=== PATIENT | male | born 1945 | race Caucasian/White ===

== ENCOUNTER → 2018-01-28 08:56 | Outpatient (REF) | payer SELFPAY ==
[2018-01-28 16:57] LABS: Amphetamine/Metha Screen,Urine Negative ng/mL (<1000); Barbiturates Screen,Urine Negative ng/mL (<200); Benzodiazepines Screen,Urine Negative ng/mL (200); Cannabinoid Screen,Urine Negative ng/mL (<50); Cocaine Screen,Urine Negative ng/g (<300); Methadone Screen,Urine Negative ng/mL (<300); Opiate Screen,Urine Positive ng/mL (<300); Phencyclidine Screen,Urine Negative ng/mL (<25)
== END ==
LOC: LAB 08:56
PROVIDERS: Visit Provider Emergency Medicine
DX: M54.30 Sciatica, unspecified side (principal)
CPT/HCPCS: 80305

== ENCOUNTER → 2022-12-04 10:40 | Outpatient (CLI) | payer MEDICARE, SELFPAY | PROVIDERS: PCP Family Medicine; Visit Provider Family Medicine | DX: I16.0 Hypertensive urgency (principal) ==

== ENCOUNTER → 2022-12-04 13:51 | Outpatient (CLI) | payer SELFPAY ==
[2022-12-04 16:02] LABS: Chol/HDL Ratio 4.3 (1-3.5); Cholesterol 213 mg/dl (140-200); HDL Cholesterol 50 mg/dl (40-60); Triglycerides 114 mg/dl (30-150); VLDL Cholesterol 23 mg/dL (0-40)
[2022-12-04 16:13] LABS: Direct LDL Cholesterol 131.94 mg/dL (100-129)
[2022-12-04 16:35] LABS: Prostate Specific Ag Screen 1.3 ng/ml (0.0-4.0)
== END ==
PROVIDERS: PCP Family Medicine; Visit Provider Family Medicine
DX: I16.0 Hypertensive urgency (principal); Z76.89 Persons encountering health services in other specified circumstances; Z12.5 Encounter for screening for malignant neoplasm of prostate
CPT/HCPCS: 80061; G0103

== ENCOUNTER 2023-09-10 17:56 | Emergency (ER) | payer SELFPAY ==
[2023-09-10] VITALS (8 sets, daily range): BP systolic 119–165; BP diastolic 61–88; PULSE 93–114; RESP 18–20; TEMP 36.8–36.9; O2SAT 92–97; BMI 25.8
--- NOTE | 2023-09-10 18:39 | CT_ITS ---
PROCEDURE INFORMATION: Exam: CT Lumbar Spine Without Contrast Exam date and time: 09/10/2023 6:44 PM Age: 78 years old Clinical indication: Low back pain; Additional info: History of lumbar spinal cancer, new sciaticsa TECHNIQUE: Imaging protocol: Computed tomography of the lumbar spine without contrast. Radiation optimization: All CT scans at this facility use at least one of these dose optimization techniques: automated exposure control; mA and/or kV adjustment per patient size (includes targeted exams where dose is matched to clinical indication); or iterative reconstruction. COMPARISON: SPLUMBWO CT lumbar spine wo con 01/12/2018 12:37 PM FINDINGS: Bones/joints: Diffuse osteopenia noted. There are bilateral acute nondisplaced fractures of the sacral ala bilaterally. There is preservation of vertebral alignment. There is preservation of vertebral body heights. The sacrum demonstrates diffuse sclerotic appearance. Kidneys and ureters: Punctate nonobstructive left nephrolithiasis Vasculature: The aorta demonstrates mild atherosclerotic calcification. Lymph nodes: Multi station retroperitoneal lymphadenopathy noted. A footwear sales representative node measures 1.8 cm in the left periaortic station. Soft tissues: Moderate presacral hematoma/soft tissue density. IMPRESSION: 1. There are bilateral acute nondisplaced fractures of the sacral ala bilaterally. Background of diffuse sacral sclerosis suspicious for underlying osseous lesion. Radiographic evaluation of the pelvis is recommended to assess for pubic rami fractures. 2. Moderate presacral hematoma/soft tissue density. 3. Multi station retroperitoneal lymphadenopathy
--- NOTE | 2023-09-10 18:43 | [facility].EDGENADL ---
Discharge Plan Disposition Patient Disposition: Home, Self-Care Prescriptions Prescriptions: No Action lisinopril 20 mg tablet 20 mg PO DAILY Referrals Follow up/Referrals: Prateek Best DO [Primary Care Provider] - See instructions Yong Lyons DO [Staff Physician] - See instructions Activity Restrictions/Add. Instructions Additional Instructions/Restrictions: Follow-up with your primary state game warden oncologist regarding this visit to the emergency department. Bring the disc with images with you. Images have also been electronically shared to [facility], but bring the disc just in case. Today, imaging found pathologic (associated with malignancy) sacral fractures with associated pelvic lymphadenopathy (swollen lymph nodes). Rectosigmoid (colon) thickening concerning for malignant involvement, 15 mm left lower lobe lung nodule with associated pleural effusion and axillary lymphadenopathy. All discussed findings of low white blood cell count (2.9 with low lymphocytes at 0.5). Call your family doctor to establish care for this visit to the emergency department and schedule follow-up within 48 hours to ensure improvement. If you have any worsening of your condition or any other concerning signs or symptoms, return to the emergency department or your primary care doctor for further evaluation. Clinical Impressions Clinical Impression: Lung nodule, Pathological fracture of sacral vertebra, Pleural effusion Discharge ED Provider: Saleem Lozano General Adult HPI General Chief complaint: PAIN Stated complaint: RT leg pain Time Seen by Provider: 09/10/23 17:59 Mode of Arrival: Wheelchair Limitations: No Limitations Description of Symptoms (Recalled from ER Triage Doc. by RN): PT REPORTS BACK PAIN THAT RADIATES DOWN RIGHT LEG X 1 MONTH. 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 Patient states has been going on for months. Has not seen his family doctor. Do a history of previous radiation and cancer in his lumbar spine, intermittently loses continence of bowel and bladder, but has had new symptoms. Feels as if the last time he had cancer in his spine and wants to make sure he is not missing anything. Denies new bowel or bladder incontinence. No weakness. Related Data Home Medications Medication Instructions Recorded Confirmed lisinopril 20 mg tablet 20 mg PO DAILY htn 01/12/23 09/10/23 Allergies Allergy/AdvReac Type Severity Reaction Status Date / Time No Known Allergies Allergy Verified 09/10/23 19:35 [facility] Disclaimer: The information contained in this section may have been updated after the patient was seen, as this information can be updated by other users. Medical History (Updated 09/10/23 @ 21:28 by Saleem Lozano MD) Cancer Change in bowel habit Dental caries History of esophageal stricture History of tuberculosis Surgical History History of bone marrow biopsy History of radical neck dissection Family History (Updated 01/12/23 @ 11:31 by Domonique Gonzalez RN) Other Family history of diabetes mellitus type II Family history of tuberculosis Social History (Updated 01/12/23 @ 11:33 by Domonique Gonzalez RN) Smoking Status: Former smoker alcohol intake: former substance use type: denies use current occupational status: retired Travel in the last 8 weeks: None household members: none housing: apartment lives independently: Yes marital status: single education level: high school caffeine: Yes special albert needs: No do you feel safe at home: Yes victim of physical abuse: No victim of emotional abuse: No victim of sexual abuse: No would you like helpful sources: No ROS Obtained: Yes All systems reviewed & no additional complaints except as documented Physical Exam General General appearance: alert and in no apparent distress Head Head exam: atraumatic and normocephalic Eye Eye exam: Present normal appearance, PERRL and EOMI ENT ENT exam: Present mucous membranes moist Neck Neck exam: Present normal inspection, full ROM and trachea midline Respiratory Respiratory exam: Absent respiratory distress, wheezes, stridor, accessory muscle use or prolonged expiratory phase Cardiovascular Cardiovascular exam: Present normal rhythm Abdominal Exam Abdominal exam: Present soft; Absent distention, tenderness, guarding, rebound or rigidity Extremities Exam Extremities exam: Absent edema Neurological Exam Neurological exam: Present alert, oriented X3, CN II-XII intact and normal gait; Absent motor sensory deficit Skin Skin exam: Present warm and dry; Absent diaphoresis or erythema Medical Decision Making Medical Records Medical records reviewed: Yes I reviewed the patient's medical records. Beka Inquiry Pt receiving controlled substance: No Beka was queried for this patient: No Vital Signs: 09/10/23 17:58 09/10/23 19:20 09/10/23 19:40 Temperature 98.2 F Temperature Source Oral Pulse Rate 109 H 107 H Pulse Rate [Radial] 114 H Respiratory Rate 18 Blood Pressure 165/88 H 139/78 Blood Pressure [Right Arm] 151/88 H Blood Pressure Mean Blood Pressure Mean [Right Arm] 109 Blood Pressure Source [Right Arm] Automatic Cuff Blood Pressure Position [Right Arm] Sitting 02 Sat by Pulse Oximetry 97 96 96 Oxygen Delivery Method Room Air 09/10/23 20:00 09/10/23 20:40 09/10/23 21:00 Temperature Temperature Source Pulse Rate 97 H 99 H 96 H Pulse Rate [Radial] Respiratory Rate 18 Blood Pressure 122/62 141/77 H 119/61 Blood Pressure [Right Arm] Blood Pressure Mean 90 Blood Pressure Mean [Right Arm] Blood Pressure Source [Right Arm] Blood Pressure Position [Right Arm] 02 Sat by Pulse Oximetry 92 L 92 L 93 L Oxygen Delivery Method 09/10/23 21:20 09/10/23 21:35 Temperature 98.4 F Temperature Source Oral Pulse Rate 93 H 99 H Pulse Rate [Radial] Respiratory Rate 20 18 Blood Pressure 126/65 126/65 Blood Pressure [Right Arm] Blood Pressure Mean 94 Blood Pressure Mean [Right Arm] Blood Pressure Source [Right Arm] Blood Pressure Position [Right Arm] 02 Sat by Pulse Oximetry 93 L Oxygen Delivery Method Room Air Lab Data Lab Results 09/10/23 19:19: WBC 2.9 L, RBC 3.19 L, Hgb 10.1 L, Hct 29.6 L, MCV 92.8, MCH 31.6 H, MCHC 34.0, RDW 16.9, Plt Count 221, MPV 8.6, Neut % (Auto) 73.2, Lymph % (Auto) 18.1, [place] % (Auto) 7.7, Eos % (Auto) 0.6, Baso % (Auto) 0.4, Neut # (Auto) 2.1, Lymph # (Auto) 0.5 L, [place] # (Auto) 0.2, Eos # (Auto) 0.0, Baso # (Auto) 0.0, Sodium 140, Potassium 4.1, Chloride 102, Carbon Dioxide 27, Anion Gap 15.1 H, BUN 23 H, Creatinine 0.90, Estimated Creat Clear 60, Estimated GFR 81, Est GFR ( Amer) 98, Glucose 96, Calcium 9.1, Total Bilirubin 0.6, AST 57, ALT 51, Alkaline Phosphatase 258 H, Lactate Dehydrogenase 581, Total Protein 7.2, Albumin 4.2, Globulin 3.0, Albumin/Globulin Ratio 1.4 09/10/23 19:19 09/10/23 19:19 Orders (Tests/Meds): ED MEDICATIONS Generic Name Dose Route Start Last Admin Trade Name Freq PRN Reason Stop Dose Admin Sodium Chloride 10 ml 09/10/23 20:26 09/10/23 20:27 Sodium Chloride 0.9% 10ml Syr (Rad Only) IV 10/10/23 20:25 10 ml NEEDED PRN Administration Maintain IV Site Discontinued Medications Generic Name Dose Route Start Last Admin Trade Name Freq PRN Reason Stop Dose Admin Dexamethasone 10 mg 09/10/23 18:39 09/10/23 19:41 Dexamethasone 4mg Tablet PO 09/10/23 18:40 10 mg ONCE ONE Administration Iopamidol 75 ml 09/10/23 20:26 09/10/23 20:27 Iopamidol-370 (76%);100ml Bottle IV 09/10/23 20:27 75 ml ONCE ONE Administration Ketorolac Tromethamine 15 mg 09/10/23 18:39 09/10/23 19:40 Ketorolac 30mg/Ml Vial IM 09/10/23 18:40 15 mg ONCE ONE Administration Lidocaine 1 each 09/10/23 18:39 09/10/23 19:41 Lidocaine 5% Transdermal Patch TP 09/10/23 18:40 1 each ONCE ONE Administration Morphine Sulfate 4 mg 09/10/23 19:24 09/10/23 19:41 Morphine 4mg/Ml Syringe IV 09/10/23 19:25 4 mg ONCE ONE Administration Ondansetron HCl 4 mg 09/10/23 19:24 09/10/23 19:40 Ondansetron 4mg/2ml Vial IV 09/10/23 19:25 4 mg ONCE ONE Administration ORDERS Category Date Time Status CT abdomen pelvis w con Stat Cat Scan 09/10/23 19:[address] bony pelvis Stat Cat Scan 09/10/23 19:[address] chest w con Stat Cat Scan 09/10/23 19:[address] lumbar spine wo con Stat Cat Scan 09/10/23 18:[address] thoracic spine wo con Stat Cat Scan 09/10/23 19:12 Completed CBC w/Auto Diff [Complete Blood Count Auto Diff] Stat Lab 09/10/23 19:19 Completed CMP [Comprehensive Metabolic Panel] Stat Lab 09/10/23 19:19 Completed LDH [Lactate Dehydrogenase] Stat Lab 09/10/23 19:19 Completed Medical Decision Narrative: 78-year-old male 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 Patient states has been going on for months. Has not seen his family doctor. Do a history of previous radiation and cancer in his lumbar spine, intermittently loses continence of bowel and bladder, but has had new symptoms. Feels as if the last time he had cancer in his spine and wants to make sure he is not missing anything. Denies new bowel or bladder incontinence. No weakness. History was obtained via conversation with patient. On arrival, patient hemodynamically stable, alert, oriented x4, appropriate, GCS 15, moving all extremities spontaneously, pupils equal and reactive to light. Full physical exam performed and significant for well-appearing male no acute distress. No spinal tenderness. Neurovascularly intact. Differential includes spinal, fracture, radiculopathy, neuropathy, cord compression, among others. Patient was given lidocaine patch, Toradol IM, Decadron p.o. for symptomatic management and correction of underlying abnormalities. Workup independently interpreted and significant for leukopenia with relative lymphopenia. LDH negative. Electrolytes within normal limits. CT of the lumbar spine was concerning for osteolytic mass, so further CTs for malignancy workup ordered including CT with contrast of the chest, abdomen, pelvis as well as dedicated CT bony pelvis. These are concerning for left-sided lung nodule with associated pleural effusion and left-sided axillary lymphadenopathy, as well as sacral fractures bilaterally with associated pelvic lymphadenopathy. See radiology read for full review of final results. On reevaluation, patient upset by news, but agreeable for home-going and outpatient management. Patient states that he needs to change primary care providers, so was referred to Dr. Lyons's office. He also has close follow-up with his hematology/oncology team over at [facility], so there is recommended he follow-up with them, he voiced his understanding. Images were shared with [place] and patient was given a disc/discharge packet. 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 Because patient at baseline without signs or symptoms of clinical decompensation, deemed appropriate for discharge. Results were relayed to patient who voiced understanding and were agreeable to outpatient management and follow up. At the time of discharge the patient was hemodynamically stable, tolerating PO, and mobilizing appropriately. Critical Care Critical Care Time Critical Care Time: No
--- NOTE | 2023-09-10 18:47 | PC.NURSE ---
Pt gone to CT
--- NOTE | 2023-09-10 19:12 | CT_ITS ---
PROCEDURE INFORMATION: Exam: CT Pelvis Without Contrast; Skeletal Exam date and time: 09/10/2023 8:13 PM Age: 78 years old Clinical indication: Pelvic pain; Additional info: Eval for malignancy vs other fractures TECHNIQUE: Imaging protocol: Computed tomography of the pelvis without contrast. Exam focused on the skeleton. Total images: 780 Radiation optimization: All CT scans at this facility use at least one of these dose optimization techniques: automated exposure control; mA and/or kV adjustment per patient size (includes targeted exams where dose is matched to clinical indication); or iterative reconstruction. COMPARISON: [facility] CT abdomen pelvis wo con 02/04/2018 1:53 AM FINDINGS: Stomach and bowel: Large rectal stool burden. Rectal wall thickening with perirectal edema. Urinary bladder: Bladder wall thickening. Lymph nodes: Diffuse soft tissue mass density infiltrating the presacral space extending along the left greater than right iliac chains. Left greater than right iliac lymphadenopathy. Additional left external iliac, inguinal, and femoral lymphadenopathy which would be amenable to percutaneous biopsy. Bones/joints: Acute bilateral sacral ala fractures. Diffuse abnormal osseous mineralization the sacrum including sclerosis of vertebral body segments and lucency of the sacral ala. No additional pelvic fracture. No hip fracture. Benign-appearing bone lesion with thin sclerotic wall in the right femoral neck. Diffuse soft tissue masslike density infiltrating the entire sacral spinal canal and extending along the bilateral sacral foramen to the bilateral SI joints. Soft tissues: Unremarkable. IMPRESSION: 1. Acute bilateral sacral ala fractures are most likely pathologic and secondary to diffuse infiltrating neoplasm. 2. Large conglomerate soft tissue density mass in the presacral space extending along the left greater than right iliac chains. 3. Diffuse soft tissue masslike infiltration of the sacral spinal canal and bilateral sacral foramina. 4. Pelvic lymphadenopathy. 5. Fecal impaction within the rectum versus stercoral colitis. 6. Moderate bladder wall thickening.
--- NOTE | 2023-09-10 19:12 | CT_ITS ---
PROCEDURE INFORMATION: Exam: CT Abdomen And Pelvis With Contrast Exam date and time: 09/10/2023 8:16 PM Age: 78 years old Clinical indication: Abdominal pain; Generalized; Additional info: Multiple spinal FX, eval for malignancy TECHNIQUE: Imaging protocol: Computed tomography of the abdomen and pelvis with contrast. Total images: 827 Radiation optimization: All CT scans at this facility use at least one of these dose optimization techniques: automated exposure control; mA and/or kV adjustment per patient size (includes targeted exams where dose is matched to clinical indication); or iterative reconstruction. Contrast material: ISOVUE; Contrast volume: 75 ml; Contrast route: IV; COMPARISON: CT BONY PELVIS 09/10/2023 8:13 PM FINDINGS: Lungs: Calcified bibasilar granuloma. Concerning 15 mm medial left lower lobe lung nodule/mass, axial image 12 series 4. Pleural spaces: Trace left pleural effusion. Heart: Normal heart size. Coronary arteries: Coronary artery calcifications. Diaphragm: Tiny hiatal hernia. Liver: Slight decreased liver attenuation from phase of contrast versus steatosis. Calcified liver granuloma. No mass. Normal size and contour. Gallbladder and bile ducts: Cholelithiasis filling the gallbladder lumen. No secondary signs of acute cholecystitis. No bile duct dilatation. Pancreas: Mild pancreatic atrophy. No mass or acute pancreatitis. Spleen: Scattered calcified splenic granuloma. No splenomegaly. Adrenal glands: Normal. No mass. Kidneys and ureters: 3 mm lower pole left renal calculus. No hydronephrosis, renal mass, or perinephric fluid. Stomach and bowel: Collapsed stomach. Unremarkable duodenum. No ileus or bowel obstruction. Small bowel appears within normal limits. Moderate to large colonic stool burden. Large rectal stool burden including rectal wall thickening and perirectal edema. Focal irregular wall thickening at the rectosigmoid junction. Appendix: Normal appendix. Intraperitoneal space: Unremarkable. No free air. No significant fluid collection. Vasculature: Atherosclerotic abdominal aorta without aneurysm. Lymph nodes: Left periaortic lymphadenopathy near the renal sinus, measuring 17 x 18 mm. Additional scattered prominent but not pathologically enlarged periaortic and aortocaval lymph nodes. Significant confluent masslike soft tissue density infiltrating the presacral space and left greater than right iliac chains. Left inguinal lymphadenopathy. Left external iliac and femoral lymphadenopathy. Left greater than right iliac adenopathy. Urinary bladder: Circumferential bladder wall thickening. No bladder stones. Trabeculated bladder wall with tiny diverticulum. Reproductive: Nonenlarged prostate with dystrophic calcifications. Bones/joints: Diffuse osseous demineralization. Mild degenerative changes lumbar spine. Abnormal bone mineralization the sacrum with bilateral sacral ala fractures may reflect sacral insufficiency fracture however must consider pathologic fracture given the significant abnormal soft tissue opacity encompassing the sacrum. Benign-appearing thin walled sclerotic bone lesion right femoral neck. No acute fracture of the pelvic ring. The sacral spinal canal appears diffusely infiltrated by soft tissue density with extension along the bilateral sacral foramen, and extension to the bilateral SI joints. Soft tissues: Fat containing bilateral inguinal hernias. Tiny fat containing umbilical hernia. IMPRESSION: 1. Bilateral sacral ala fractures are most likely pathologic. 2. Diffuse infiltrating soft tissue mass of the sacrum and infiltrating the sacral spinal canal and bilateral sacral foramina. 3. Considerable confluent soft tissue mass, favored over hematoma, in the presacral space extending along the left greater than right iliac chains. 4. Retroperitoneal and left greater than right pelvic lymphadenopathy. Additional left iliac and femoral lymphadenopathy. Recommend percutaneous biopsy to establish histology. 5. Large rectal stool burden including fecal impaction versus acute stercoral colitis. Associated rectal wall thickening and perirectal edema. 6. Irregular wall thickening at the rectosigmoid junction. Cannot exclude neoplasm. 7. Bladder wall thickening may reflect chronic outlet obstruction, neurogenic bladder, or cystitis. 8. Large colonic stool burden. 9. Cholelithiasis without acute cholecystitis 10. Concerning 15 mm left lower lobe lung nodule. 11. Trace left pleural effusion. 12. Additional chronic and incidental findings.
--- NOTE | 2023-09-10 19:12 | CT_ITS ---
PROCEDURE INFORMATION: Exam: CT Thoracic Spine Without Contrast Exam date and time: 09/10/2023 8:11 PM Age: 78 years old Clinical indication: Pain in thoracic spine; Additional info: Lumbar spinal lesion TECHNIQUE: Imaging protocol: Computed tomography of the thoracic spine without contrast. Total images: 319 Radiation optimization: All CT scans at this facility use at least one of these dose optimization techniques: automated exposure control; mA and/or kV adjustment per patient size (includes targeted exams where dose is matched to clinical indication); or iterative reconstruction. COMPARISON: CT LUMBAR SPINE WO CON 09/10/2023 6:44 PM FINDINGS: Bones/joints: Thoracic vertebral body height and alignment is preserved. No acute fracture or traumatic subluxation. Facet joints are appropriately aligned. Posterior elements are intact. Mild multilevel degenerate disc disease. No concerning bone lesions. Mild anterior wedging and increased sclerosis of the C7 vertebral body, is most likely remote or degenerative. Minor S-shaped thoracic scoliosis. Costovertebral junctions are preserved. Included posterior ribs are unremarkable. Soft tissues: No paraspinal soft tissue mass, edema, or fluid collections. Other findings: Additional findings can be found on separate chest CT report. IMPRESSION: 1. No acute osseous abnormality or concerning bone lesions. 2. Mild degenerative and chronic findings. 3. Please refer to chest CT for additional details.
--- NOTE | 2023-09-10 19:12 | CT_ITS ---
PROCEDURE INFORMATION: Exam: CT Chest With Contrast; Diagnostic Exam date and time: 09/10/2023 8:16 PM Age: 78 years old Clinical indication: Sternal or substernal pain; Additional info: Malignancy work up, apine masses TECHNIQUE: Imaging protocol: Diagnostic computed tomography of the chest with contrast. Total images: 702 Radiation optimization: All CT scans at this facility use at least one of these dose optimization techniques: automated exposure control; mA and/or kV adjustment per patient size (includes targeted exams where dose is matched to clinical indication); or iterative reconstruction. Contrast material: ISOVUE; Contrast volume: 75 ml; Contrast route: IV; COMPARISON: CT ABDOMEN PELVIS W CON 09/10/2023 8:16 PM FINDINGS: Lungs: Trachea and main bronchi are patent. Minor biapical scarring. Bilateral calcified pulmonary granuloma. Concerning 15 mm nodule/mass in the medial left lower lobe, axial image 63 series 3. Lungs are otherwise clear and well expanded. Pleural spaces: Trace left pleural effusion. No pneumothorax. Heart: Normal heart size. No pericardial effusion. Coronary arteries: Moderate to severe coronary artery calcifications. Lymph nodes: Clustered prominent mediastinal lymph nodes in the AP window and anterior to the descending thoracic aorta. Mild left axillary lymphadenopathy. No hilar lymphadenopathy. Partially calcified bilateral hilar and subcarinal lymph nodes. Vasculature: Atherosclerotic thoracic aorta without aneurysm or dissection. Diaphragm: Tiny hiatal hernia. Intraperitoneal space: For discussion of the upper abdomen, please see separate CT abdomen and pelvis report. Bones/joints: Mild degenerative changes thoracic spine. Mild loss vertebral body height at C7 likely remote or degenerative. Minor S-shaped thoracic scoliosis. No acute osseous abnormality. Soft tissues: Unremarkable. IMPRESSION: 1. Concerning 15 mm medial left lower lobe nodule/mass. Consider non-emergent PET/CT, or tissue sampling.(Reference: Margarito) 2. Trace left pleural effusion. 3. Prominent clustered mediastinal lymph nodes in the AP window and anterior to the descending thoracic aorta. 4. Left axillary lymphadenopathy. 5. Moderate to severe coronary artery calcifications. 6. Remote calcified granulomatous disease. REFERENCES: Margarito Barnhart et al. Guidelines for Management of Incidental Pulmonary Nodules Detected on CT Images: From the Fleischner Society 2017. Radiology. 2017;284(1):228-243.
[2023-09-10 19:34] LABS: Basophils % 0.4 % (0.1-2.0); Eosinophils % 0.6 % (0.1-12.0); Hematocrit 29.6 % (42.0-52.0); Hemoglobin 10.1 g/dL (14.1-18.0); Lymphocytes # 0.5 K/mm3 (0.7-4.5); Lymphocytes % 18.1 % (10-50); Mean Corpuscular Hemoglobin 31.6 pg (27.0-31.2); Mean Corpuscular Volume 92.8 fl (80-94); Mean Platelet Volume 8.6 fl (7.4-10.4); Monocytes # 0.2 K/mm3 (0.1-1.0); Monocytes % 7.7 % (1.7-9.3); Neutrophils # 2.1 K/mm3 (1.8-7.8); Neutrophils % 73.2 % (37.0-80.0); Platelet Count 221 K/mm3 (142-424); Red Blood Count 3.19 M/mm3 (4.60-6.20); Red Cell Distribution Width 16.9 % (11.5-17.5); White Blood Count 2.9 K/mm3 (4.8-10.8)
[2023-09-10] MEDS: ONDANSETRON 4MG/2ML VIAL 4 MG IV (19:40)
[2023-09-10] MEDS: KETOROLAC 30MG/ML VIAL 15 MG IM (19:40)
[2023-09-10] MEDS: MORPHINE 4MG/ML SYRINGE 4 MG IV (19:41)
[2023-09-10] MEDS: LIDOCAINE 5% TRANSDERMAL PATCH 1 EACH TP (19:41)
[2023-09-10] MEDS: DEXAMETHASONE 4MG TABLET 10 MG PO (19:41)
[2023-09-10 19:50] LABS: Alanine Aminotransferase 51 U/L (12-78); Albumin Level 4.2 g/dl (3.5-5.0); Albumin/Globulin Ratio 1.4 (1.1-1.8); Alkaline Phosphatase 258 U/L (38-126); Anion Gap 15.1 mEq/L (5-15); Aspartate Amino Transferase 57 U/L (17-59); Bilirubin,Total 0.6 mg/dl (0.2-1.3); Blood Urea Nitrogen 23 mg/dl (9-20); Calcium 9.1 mg/dl (8.4-10.2); Carbon Dioxide 27 mmol/L (22.0-30.0); Chloride 102 mmol/L (98-107); Creatinine Clearance Estimated 60 mL/min (50-200); Estimated Glomerular Filt Rate 81 ml/min (>60); GFR (African American) 98 ML/MIN (>60); Glucose 96 mg/dl (74-100); Lactate Dehydrogenase 581 U/L (313-618); Potassium 4.1 mmoL/L (3.5-5.1); Sodium 140 mmol/L (136-145); Total Protein,Serum 7.2 g/dl (6.3-8.2)
--- NOTE | 2023-09-10 20:16 | PC.NURSE ---
pt to radiology
[2023-09-10] MEDS: SODIUM CHLORIDE 0.9% 10ML SYR (RAD ONLY) 10 ML IV (20:27)
[2023-09-10] MEDS: IOPAMIDOL-370 (76%);100ML BOTTLE 75 ML IV (20:27)
--- NOTE | 2023-09-10 21:24 | PC.NURSE ---
call placed to rad via samantha guerrero rn. request for [facility] and disk.
== END 2023-09-10 21:47 | disposition home or self-care (01) ==
PROVIDERS: Emergency Provider Emergency Medicine; PCP Internal Medicine
DX: S32.19XA Other fracture of sacrum, initial encounter for closed fracture (principal); M79.604 Pain in right leg; J90 Pleural effusion, not elsewhere classified; D72.810 Lymphocytopenia; D72.829 Elevated white blood cell count, unspecified; Z87.891 Personal history of nicotine dependence; W19.XXXA Unspecified fall, initial encounter
CPT/HCPCS: 71260; 72128; 72131; 72192; 74177; 80053; 83615; 85025; 96372; 96374; 96375; 99285; J2405; Q9967

== ENCOUNTER 2023-09-25 08:55 | Outpatient (CLI) | payer SELFPAY ==
[2023-09-25 09:04] VITALS: BMI 25.8
--- NOTE | 2023-09-25 09:10 | PC.NURSE ---
0910-collected labs via venipuncture stick with butterfly needle in right ac;pt to wait on results.
[2023-09-25 09:25] LABS: Basophils % 0.3 % (0.1-2.0); Eosinophils % 1.2 % (0.1-12.0); Hematocrit 24.4 % (42.0-52.0); Hemoglobin 8.5 g/dL (14.1-18.0); Lymphocytes # 0.2 K/mm3 (0.7-4.5); Lymphocytes % 11.7 % (10-50); Mean Corpuscular HGB Conc 34.9 g/dL (31.8-35.4); Mean Corpuscular Hemoglobin 31.9 pg (27.0-31.2); Mean Corpuscular Volume 91.6 fl (80-94); Mean Platelet Volume 8.6 fl (7.4-10.4); Monocytes % 2.1 % (1.7-9.3); Neutrophils # 1.3 K/mm3 (1.8-7.8); Neutrophils % 84.6 % (37.0-80.0); Platelet Count 82 K/mm3 (142-424); Red Blood Count 2.66 M/mm3 (4.60-6.20); Red Cell Distribution Width 16.9 % (11.5-17.5); White Blood Count 1.5 K/mm3 (4.8-10.8)
--- NOTE | 2023-09-25 09:30 | PC.NURSE ---
0930-pt d/c home; hgb 8.5 and plt 82. pt to return on 09/28/23 for repeat labs
[2023-09-25 09:32] LABS: Alanine Aminotransferase 55 U/L (12-78); Albumin Level 3.1 g/dl (3.5-5.0); Albumin/Globulin Ratio 1.3 (1.1-1.8); Alkaline Phosphatase 138 U/L (38-126); Anion Gap 5.8 mEq/L (5-15); Aspartate Amino Transferase 48 U/L (17-59); Bilirubin,Total 0.7 mg/dl (0.2-1.3); Blood Urea Nitrogen 19 mg/dl (9-20); Calcium 7.9 mg/dl (8.4-10.2); Carbon Dioxide 27 mmol/L (22.0-30.0); Chloride 105 mmol/L (98-107); Creatinine Clearance Estimated 60 mL/min (50-200); Estimated Glomerular Filt Rate 109 ml/min (>60); GFR (African American) 131 ML/MIN (>60); Globulin 2.3 g/dL (1.3-3.2); Glucose 99 mg/dl (74-100); Potassium 3.8 mmoL/L (3.5-5.1); Sodium 134 mmol/L (136-145); Total Protein,Serum 5.4 g/dl (6.3-8.2)
== END 2023-09-25 09:30 | disposition home or self-care (01) ==
LOC: INF 08:56
PROVIDERS: PCP Internal Medicine; Visit Provider Internal Medicine
DX: M53.3 Sacrococcygeal disorders, not elsewhere classified (principal)
CPT/HCPCS: 36415; 80053; 85025

== ENCOUNTER 2023-09-28 08:53 | Outpatient (CLI) | payer SELFPAY ==
[2023-09-28 09:02] VITALS: BMI 25.8
[2023-09-28 09:18] LABS: Basophils % 0.1 % (0.1-2.0); Eosinophils % 0.4 % (0.1-12.0); Hematocrit 24.5 % (42.0-52.0); Hemoglobin 8.4 g/dL (14.1-18.0); Lymphocytes # 0.3 K/mm3 (0.7-4.5); Lymphocytes % 13.5 % (10-50); Mean Corpuscular HGB Conc 34.4 g/dL (31.8-35.4); Mean Corpuscular Hemoglobin 31.4 pg (27.0-31.2); Mean Corpuscular Volume 91.3 fl (80-94); Mean Platelet Volume 9.1 fl (7.4-10.4); Monocytes # 0.1 K/mm3 (0.1-1.0); Monocytes % 4.6 % (1.7-9.3); Neutrophils # 1.5 K/mm3 (1.8-7.8); Neutrophils % 81.4 % (37.0-80.0); Red Blood Count 2.69 M/mm3 (4.60-6.20); Red Cell Distribution Width 16.7 % (11.5-17.5); White Blood Count 1.9 K/mm3 (4.8-10.8)
[2023-09-28 09:24] LABS: Platelet Count 45 K/mm3 (142-424)
[2023-09-28 09:38] LABS: Alanine Aminotransferase 42 U/L (12-78); Albumin Level 3.4 g/dl (3.5-5.0); Albumin/Globulin Ratio 1.4 (1.1-1.8); Alkaline Phosphatase 129 U/L (38-126); Anion Gap 8.8 mEq/L (5-15); Aspartate Amino Transferase 38 U/L (17-59); Bilirubin,Total 0.5 mg/dl (0.2-1.3); Blood Urea Nitrogen 15 mg/dl (9-20); Calcium 8.7 mg/dl (8.4-10.2); Carbon Dioxide 26 mmol/L (22.0-30.0); Chloride 104 mmol/L (98-107); Creatinine Clearance Estimated 60 mL/min (50-200); Estimated Glomerular Filt Rate 109 ml/min (>60); GFR (African American) 131 ML/MIN (>60); Globulin 2.4 g/dL (1.3-3.2); Glucose 105 mg/dl (74-100); Potassium 3.8 mmoL/L (3.5-5.1); Sodium 135 mmol/L (136-145); Total Protein,Serum 5.8 g/dl (6.3-8.2)
== END 2023-09-28 09:30 | disposition home or self-care (01) ==
LOC: INF 08:53
PROVIDERS: PCP Internal Medicine; Visit Provider Internal Medicine
DX: M53.3 Sacrococcygeal disorders, not elsewhere classified (principal)
CPT/HCPCS: 36415; 80053; 85025; G0463

== ENCOUNTER 2023-10-01 19:57 | Emergency (ER) | payer SELFPAY ==
[2023-10-01 20:10] VITALS: BP 119/64; PULSE 85; RESP 18; TEMP 36.6; O2SAT 98; BMI 25.8
--- NOTE | 2023-10-01 20:21 | ECG_ITS ---
APPROVED REPORT Exam: Resting ECG HR:101 bpm ECG Measurements Heart Rate 101 AXES QRSd 84 QRS 100 QT 367 T 13 QTc 425 Conclusion ATRIAL FIBRILLATION WITH RAPID VENTRICULAR RESPONSE POSSIBLE RIGHT VENTRICULAR HYPERTROPHY [SOME/ALL OF: PROMINENT R IN V1, LATE TRANSITION, RAD, ILANA, SSS] ABNORMAL ECG UNCONFIRMED REPORT Electronically signed by : Miles Hyman MD 10/03/2023 21:47:54
--- NOTE | 2023-10-01 20:27 | CT_ITS ---
PROCEDURE INFORMATION: Exam: CT Abdomen And Pelvis With Contrast Exam date and time: 10/01/2023 9:00 PM Age: 78 years old Clinical indication: Abdominal pain; Additional info: Abd pain, nv, recent chemo, h/o lymphoma TECHNIQUE: Imaging protocol: Computed tomography of the abdomen and pelvis with contrast. Radiation optimization: All CT scans at this facility use at least one of these dose optimization techniques: automated exposure control; mA and/or kV adjustment per patient size (includes targeted exams where dose is matched to clinical indication); or iterative reconstruction. Contrast material: ISOVUE; Contrast volume: 75 ml; Contrast route: IV; COMPARISON: CT ABDOMEN PELVIS W CON 09/10/2023 8:16 PM FINDINGS: Lungs: Subpleural nodular density in the anteromedial left lower lobe redemonstrated now measuring around 9 mm and previously measured 14 mm. Lung bases otherwise clear. Liver: Unremarkable. Gallbladder and bile ducts: Multiple stones in the gallbladder redemonstrated. Gallbladder appears more distended with associated new mild edema and wall thickening of the gallbladder. Extrahepatic CBD appears increased in caliber and mildly dilated at 10 mm. Pancreas: Normal. No ductal dilation. Spleen: Normal. No splenomegaly. Adrenal glands: Normal. No mass. Kidneys and ureters: 2 mm nonobstructing stone mid left kidney. Kidneys and ureters otherwise unremarkable with no obstructing stones or uropathy. Stomach and bowel: Interval resolution of the previously noted stool burden of the rectum. Moderate amount of fecal material noted in the more proximal colon from the cecum through the mid to distal sigmoid compatible constipation. GI tract structures otherwise unremarkable with no evident wall thickening allowing for incomplete distention. Appendix: No evidence of appendicitis. Intraperitoneal space: Unremarkable. No free air. No significant fluid collection. Vasculature: Atherosclerotic changes of the aorta and iliacs noted. No evidence of aneurysm. Lymph nodes: Left para-aortic adenopathy at the renal level measuring 16 mm in short axis and previously measured 20 mm. Left inguinal lymphadenopathy measuring 12 mm in short axis and previously measured 17 mm. Left external iliac adenopathy measuring 14 mm and previously measured 17 mm and left femoral adenopathy measuring 12 mm and previously measured 17 mm. Urinary bladder: Unremarkable as visualized. Reproductive: Unremarkable as visualized. Bones/joints: Infiltrating presacral conglomerate presacral mass with extension along the internal iliac chains bilaterally [id number] redemonstrated. This measures 2.9 cm in maximum thickness and previously measured 3.6 cm. This process extends through the sacral foramina into the sacral canal. Additionally there is evidence for extension posterior to the sacrum measuring 18 mm in thickness and previously measured 23 mm. Abnormal inhomogeneous density of the sacrum with mixed sclerosis and lucent areas noted similar to previous. Bilateral sacral ala fracture redemonstrated. Bony structures intact. No other suspicious lytic or blastic lesions seen. Soft tissues: Small fat containing inguinal hernias redemonstrated. IMPRESSION: 1. Distended gallbladder with stones. Possible developing wall thickening and edema raising concern for potential developing acute cholecystitis in the proper clinical setting. Associated development of mild dilatation of the extrahepatic CBD. Consider further workup with ultrasound of the right upper quadrant. 2. Presacral conglomerate mass with associated extension into the sacral foramina and sacral canal as well as extension posterior to the sacrum compatible with tumor related to patient's lymphoma with associated involvement of the sacrum. This finding has improved some in the interval. 3. Associated inhomogeneous sacrum with bilateral fractures that may reflect insufficiency and/or pathologic fractures related to the tumor. 4. Left para-aortic, left external iliac and femoral, and left inguinal lymphadenopathy with mild interval improvement. 5. Left lower lobe subpleural nodule with interval improvement. 6. Constipation. Resolved fecal impaction.
[2023-10-01 20:31] VITALS: BP 134/69; PULSE 84; RESP 14; O2SAT 97
--- NOTE | 2023-10-01 20:33 | ED_ITS ---
Discharge Plan Disposition Patient Disposition: Home, Self-Care Prescriptions Prescriptions: No Action lisinopril 20 mg tablet 20 mg PO DAILY Referrals Follow up/Referrals: Prateek Best DO [Primary Care Provider] - See instructions Activity Restrictions/Add. Instructions Additional Instructions/Restrictions: Please keep your previously made appointments with your oncologist's and your primary care physician. Return the emergency room with any significant worsening of your symptoms. No emergent medical condition identified today your symptoms are most likely secondary to recent chemotherapy. Clinical Impressions Clinical Impression: Chemotherapy induced nausea and vomiting, DLBCL (diffuse large B cell lymphoma), Abdominal pain, Cholelithiasis, Pancytopenia Discharge ED Provider: Zena Bustos General Adult HPI General Chief complaint: Weakness Stated complaint: n/v ba weakness Time Seen by Provider: 10/01/23 20:21 Mode of Arrival: Wheelchair Source of Information: Patient Limitations: No Limitations Description of Symptoms (Recalled from ER Triage Doc. by RN): Pt to ED with c/o N/V, decreased appetite, and weakness starting this morning. Pt states he has had lymphoma X10 years and is currently on chemo. Last chemo was last . Pt took zofran and tylenol @ 1600 today. History of Present Illness HPI narrative: Patient is an 78-year-old male followed by [facility] for diffuse large B-cell lymphoma has a history of cervical lymphoma mediastinal left axillary retroperitoneal lymphadenopathy sacral mass and thoracic mets multifocal sclerotic lesions of the spine also with an acute versus subacute bilateral sacral ala fracture recently in the hospital for urinary retention presenting today 1 week after chemotherapy for nausea vomiting and abdominal pain. States has had decreased bowel movements but has been constipated in the past this was recently commented on in the discharge summary from [facility]. Denies any fever states she just overall feels down. Related Data Home Medications Medication Instructions Recorded Confirmed lisinopril 20 mg tablet 20 mg PO DAILY htn 01/12/23 09/10/23 Allergies Allergy/AdvReac Type Severity Reaction Status Date / Time No Known Allergies Allergy Verified 09/10/23 19:35 [facility] Disclaimer: The information contained in this section may have been updated after the patient was seen, as this information can be updated by other users. Medical History (Updated 10/01/23 @ 22:22 by Zena Bustos MD) Cancer Change in bowel habit Dental caries History of esophageal stricture History of tuberculosis Surgical History History of bone marrow biopsy History of radical neck dissection Family History Other Family history of diabetes mellitus type II Family history of tuberculosis Social History Smoking Status: Unknown if ever smoked alcohol intake: former substance use type: denies use current occupational status: retired Travel in the last 8 weeks: None household members: none housing: apartment lives independently: Yes marital status: single education level: high school caffeine: Yes special albert needs: No do you feel safe at home: Yes victim of physical abuse: No victim of emotional abuse: No victim of sexual abuse: No would you like helpful sources: No ROS Obtained: Yes All systems reviewed & no additional complaints except as documented Physical Exam General General appearance: alert Respiratory Respiratory exam: Present normal lung sounds bilaterally Cardiovascular Cardiovascular exam: Present regular rate Abdominal Exam Abdominal exam: Present soft; Absent distention or tenderness Neurological Exam Neurological exam: Present alert Medical Decision Making Beka Inquiry Pt receiving controlled substance: No Vital Signs: 10/01/23 20:10 10/01/23 20:31 10/01/23 21:30 Temperature 97.8 F Temperature Source Oral Pulse Rate 84 89 Pulse Rate [Left Radial] 85 Respiratory Rate 18 14 12 Blood Pressure 134/69 171/86 H Blood Pressure [Right Arm] 119/64 Blood Pressure Mean 81 Blood Pressure Mean [Right Arm] 82 Blood Pressure Source [Right Arm] Automatic Cuff Blood Pressure Position [Right Arm] Supine 02 Sat by Pulse Oximetry 98 97 97 Oxygen Delivery Method Room Air Room Air 10/01/23 22:00 Temperature Temperature Source Pulse Rate 87 Pulse Rate [Left Radial] Respiratory Rate 11 L Blood Pressure 145/75 H Blood Pressure [Right Arm] Blood Pressure Mean Blood Pressure Mean [Right Arm] Blood Pressure Source [Right Arm] Blood Pressure Position [Right Arm] 02 Sat by Pulse Oximetry 98 Oxygen Delivery Method Lab Data Lab results reviewed: Yes I reviewed the patient's lab results. Lab Results 10/01/23 20:15: WBC 2.9 L, RBC 2.62 L, Hgb 8.3 L, Hct 24.4 L, MCV 93.1, MCH 31.5 H, MCHC 33.9, RDW 17.8 H, Plt Count 44 L*, MPV 9.7, Neut % (Auto) 75.4, Lymph % (Auto) 17.1, Arroyo % (Auto) 7.1, Eos % (Auto) 0.3, Baso % (Auto) 0.1, Neut # (Auto) 2.2, Lymph # (Auto) 0.5 L, Arroyo # (Auto) 0.2, Eos # (Auto) 0.0, Baso # (Auto) 0.0, Sodium 133 L, Potassium 3.6, Chloride 104, Carbon Dioxide 26, Anion Gap 6.6, BUN 18, Creatinine 0.50 L, Estimated Creat Clear 60, Estimated GFR 160, Est GFR ( Amer) 194, Glucose 139 H, Calcium 8.6, Total Bilirubin 0.6, AST 39, ALT 40, Alkaline Phosphatase 149 H, Total Protein 6.0 L, Albumin 3.5, Globulin 2.5, Albumin/Globulin Ratio 1.4, Lipase 37 10/01/23 20:15 10/01/23 20:15 Orders (Tests/Meds): ED MEDICATIONS Generic Name Dose Route Start Last Admin Trade Name Freq PRN Reason Stop Dose Admin Sodium Chloride 10 ml 10/01/23 21:05 10/01/23 21:06 Sodium Chloride 0.9% 10ml Syr (Rad Only) IV 10/31/23 21:04 10 ml NEEDED PRN Administration Maintain IV Site Discontinued Medications Generic Name Dose Route Start Last Admin Trade Name Freq PRN Reason Stop Dose Admin Lactated Ringer's 1,000 mls @ 999 mls/hr 10/01/23 20:30 10/01/23 20:35 Lactated Ringer's 1000 Ml Bag IV 10/01/23 21:30 999 mls/hr .Q1H1M THAIS Administration Iopamidol 75 ml 10/01/23 21:05 10/01/23 21:06 Iopamidol-370 (76%);100ml Bottle IV 10/01/23 21:06 75 ml ONCE ONE Administration Morphine Sulfate 4 mg 10/01/23 20:27 10/01/23 20:35 Morphine 4mg/Ml Syringe IV 10/01/23 20:28 4 mg ONCE ONE Administration Ondansetron HCl 4 mg 10/01/23 20:27 10/01/23 20:34 Ondansetron 4mg/2ml Vial IV 10/01/23 20:28 4 mg ONCE ONE Administration ORDERS Category Date Time Status CT abdomen pelvis w con Stat Cat Scan 10/01/23 20:27 Completed CBC w/Auto Diff [Complete Blood Count Auto Diff] Stat Lab 10/01/23 20:15 Comp leted CMP [Comprehensive Metabolic Panel] Stat Lab 10/01/23 20:15 Completed Lipase Stat Lab 10/01/23 20:15 Completed ECG initial Besson Routine Y 10/01/23 20:21 Completed ECG Data Tracing #1: I reviewed this ECG and interpreted as documented below: (I personally interpreted EKG showing a ventricular rate of 101 tachycardia no obvious P waves consistent with atrial fibrillation no acute ischemic changes noted nonspecific axis deviation no significant or severe other conduction abnormality no STEMI noted) Medical Decision Narrative: 78-year-old male with a history as above presenting today with nausea and vomiting and abdominal pain but has a benign abdominal exam. Differential inclu jade neutropenic enterocolitis or typhlitis, bowel obstruction, radiation-induced nausea vomiting etc. Will get a CT scan give IV fluids pain medicine nausea medicine will reassess. Reassessment 10:22 PM patient feeling significantly better serial abdominal exams completely benign no tenderness. On his CT scan which I first interpreted also looked at radiology read there is some gallstones and some gallbladder thickening and possible edema but he has no tenderness in this area is not consistent clinically with cholecystitis. Similar findings are consistent with old findings on CT scan including presacral mass and sacrum and insufficiency fractures in the pelvic region which were previously known. Patient has nausea medicine at home and follow-up with his oncologist primary care doctor as needed. Symptoms most likely secondary to the patient's recent chemotherapy. His labs are otherwise unremarkable aside from pancytopenia he has an ANC of 2200 at this point I am not concerned about neutropenic enterocolitis. Patient was discharged in improved and stable condition. Return precautions emphasized. Critical Care Critical Care Time Critical Care Time: No
[2023-10-01] MEDS: ONDANSETRON 4MG/2ML VIAL 4 MG IV (20:34)
[2023-10-01] MEDS: MORPHINE 4MG/ML SYRINGE 4 MG IV (20:35)
[2023-10-01] MEDS: LACTATED RINGERS 1000ML 1,000 ML 999 ML IV (20:35)
[2023-10-01 20:43] LABS: Basophils % 0.1 % (0.1-2.0); Eosinophils % 0.3 % (0.1-12.0); Hematocrit 24.4 % (42.0-52.0); Hemoglobin 8.3 g/dL (14.1-18.0); Lymphocytes # 0.5 K/mm3 (0.7-4.5); Lymphocytes % 17.1 % (10-50); Mean Corpuscular HGB Conc 33.9 g/dL (31.8-35.4); Mean Corpuscular Hemoglobin 31.5 pg (27.0-31.2); Mean Corpuscular Volume 93.1 fl (80-94); Mean Platelet Volume 9.7 fl (7.4-10.4); Monocytes # 0.2 K/mm3 (0.1-1.0); Monocytes % 7.1 % (1.7-9.3); Neutrophils # 2.2 K/mm3 (1.8-7.8); Neutrophils % 75.4 % (37.0-80.0); Red Blood Count 2.62 M/mm3 (4.60-6.20); Red Cell Distribution Width 17.8 % (11.5-17.5); White Blood Count 2.9 K/mm3 (4.8-10.8)
[2023-10-01 20:47] LABS: Platelet Count 44 K/mm3 (142-424)
[2023-10-01 20:48] LABS: Chloride 104 mmol/L (98-107); Potassium 3.6 mmoL/L (3.5-5.1); Sodium 133 mmol/L (136-145)
[2023-10-01 20:50] LABS: Blood Urea Nitrogen 18 mg/dl (9-20); Creatinine Clearance Estimated 60 mL/min (50-200); Estimated Glomerular Filt Rate 160 ml/min (>60); GFR (African American) 194 ML/MIN (>60)
[2023-10-01 20:51] LABS: Alanine Aminotransferase 40 U/L (12-78); Albumin Level 3.5 g/dl (3.5-5.0); Albumin/Globulin Ratio 1.4 (1.1-1.8); Alkaline Phosphatase 149 U/L (38-126); Anion Gap 6.6 mEq/L (5-15); Aspartate Amino Transferase 39 U/L (17-59); Bilirubin,Total 0.6 mg/dl (0.2-1.3); Calcium 8.6 mg/dl (8.4-10.2); Carbon Dioxide 26 mmol/L (22.0-30.0); Globulin 2.5 g/dL (1.3-3.2); Glucose 139 mg/dl (74-100); Lipase 37 U/L (23-300)
--- NOTE | 2023-10-01 20:53 | PC.NURSE ---
pt to CT
[2023-10-01] MEDS: IOPAMIDOL-370 (76%);100ML BOTTLE 75 ML IV (21:06)
[2023-10-01] MEDS: SODIUM CHLORIDE 0.9% 10ML SYR (RAD ONLY) 10 ML IV (21:06)
--- NOTE | 2023-10-01 21:26 | PC.NURSE ---
Rounded on pt at this time. PT states pain is much improved and he wants to take a nap. Pt was given pillow and lights turned down.
[2023-10-01 21:30] VITALS: BP 171/86; PULSE 89; RESP 12; O2SAT 97
[2023-10-01 22:00] VITALS: BP 145/75; PULSE 87; RESP 11; O2SAT 98
[2023-10-01 22:23] VITALS: BP 145/75; PULSE 87; RESP 14; TEMP 36.6; O2SAT 98
== END 2023-10-01 22:29 | disposition home or self-care (01) ==
PROVIDERS: Emergency Provider Student in an Organized Health Care Education/Training Program; PCP Internal Medicine
DX: R10.84 Generalized abdominal pain (principal); T45.1X5A Adverse effect of antineoplastic and immunosuppressive drugs, initial encounter; R11.2 Nausea with vomiting, unspecified; C83.30 Diffuse large B-cell lymphoma, unspecified site; D61.818 Other pancytopenia; K80.20 Calculus of gallbladder without cholecystitis without obstruction; R00.0 Tachycardia, unspecified; E87.1 Hypo-osmolality and hyponatremia
CPT/HCPCS: 74177; 80053; 83690; 85025; 93005; 96361; 96374; 96375; 99285; J2405; Q9967

== ENCOUNTER 2024-03-11 20:15 | Inpatient (IN) | payer MEDICARE, SELFPAY ==
[2024-03-11 20:16] VITALS: BP 183/103; PULSE 107; RESP 16; TEMP 36.6; O2SAT 100; BMI 22.6
--- NOTE | 2024-03-11 20:37 | CT_ITS ---
PROCEDURE INFORMATION: Exam: CTA Abdomen and Pelvis With Contrast Exam date and time: 03/11/2024 9:44 PM Age: 78 years old Clinical indication: Other: Concern for chronic mesenteric ischemia TECHNIQUE: Imaging protocol: Computed tomographic angiography of the abdomen and pelvis with contrast. Exam focused on the arteries. 3D rendering (Not supervised by radiologist): MIP and/or 3D reconstructed images were created by the technologist. Radiation optimization: All CT scans at this facility use at least one of these dose optimization techniques: automated exposure control; mA and/or kV adjustment per patient size (includes targeted exams where dose is matched to clinical indication); or iterative reconstruction. Contrast material: ISOVUE; Contrast volume: 100 ml; Contrast route: INTRAVENOUS (IV); COMPARISON: CT ABDOMEN PELVIS W CON 10/01/2023 9:00 PM FINDINGS: Lungs: Granulomatous calcifications in the lung bases. Mild subsegmental atelectasis or fibrosis in the peripheral lung bases. Heart: Heart size normal. Esophagus: Small to moderate-sized hiatal hernia with moderate distal esophageal wall thickening suspicious for esophagitis. Aorta: Visualized distal thoracic aorta demonstrates mild calcific plaque without aneurysm, dissection, or stenosis. Abdominal aorta demonstrates moderate mixed plaque without aneurysm, dissection, or stenosis. Celiac trunk and mesenteric arteries: Celiac artery and its major branch vessels are normal. SMA and its major branch vessels are normal. KAREN is normal. Renal arteries: Right renal artery demonstrates severe post ostial stenosis of 70-80%. Left renal artery demonstrates minor post ostial calcific plaque without stenosis. Right iliac arteries: Right iliac arteries demonstrate minor calcific plaque without aneurysm, dissection, or stenosis. Left iliac arteries: Left iliac arteries demonstrate minor calcific plaque without aneurysm, dissection, or stenosis. Masslike perivascular density in the left hemipelvis along the internal iliac artery and proximal branches is grossly unchanged, with history of lymphoma disclosed on previous report 10/01/2023, with additional soft tissue density extending in the bilateral sacral neural foramina as seen on prior scans concerning for regional changes related to lymphoma, versus residual posttreatment changes. Liver: Moderate generalized fatty infiltration of the liver with sparing around the gallbladder fossa and patchy sparing in the right hepatic lobe. Normal contour. No mass lesions. No intrahepatic biliary ductal dilatation. Gallbladder and biliary ducts: Moderate gallbladder wall thickening/edema with numerous gallstones, correlate clinically for cholecystitis. Consider sonographic assessment as clinically indicated. Nondilated bile ducts for age. Pancreas: Mild pancreatic atrophy without acute abnormality. No pancreatic ductal dilatation. Spleen: Granulomatous calcifications in the spleen without acute splenic abnormality. Adrenal glands: Normal. No adrenal mass. Kidneys and ureters: Mild left hydronephrosis and hydroureter. No urolithiasis. There is mild left-sided ureteral wall thickening and periureteral stranding suspicious for changes of UTI. The right kidney and right collecting system are unremarkable. Stomach and bowel: Stomach is moderately fluid distended but otherwise unremarkable. The small bowel is nondilated with no gross abnormality. Large volume colonic stool throughout the colon with severe fecal distension of the rectum reaching 8 cm diameter suggesting rectal fecal impaction. There is wall thickening in the rectum and distal sigmoid colon concerning for associated stercoral colitis. No evidence of perforation or abscess. Appendix: The appendix is normal in caliber and demonstrates no evidence of appendicitis. Intraperitoneal space: No peritoneal free fluid or air. Lymph nodes: No adenopathy. Urinary bladder: Urinary bladder wall thickening with mild adjacent stranding, nonspecific, possibly reactive changes of chronic partial outlet obstruction from prostate enlargement although cannot exclude cystitis, correlate with UA. Partial herniation of the rightward bladder dome into the right inguinal hernia. Reproductive: Mildly enlarged prostate. Bones/joints: Chronic lower right lateral rib fractures. Chronic sclerosis in the S1 and S2 sacral segments unchanged, potentially posttreatment changes although metastasis not excluded. Chronic sacral insufficiency fracture in the right sacral ala again noted. 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 Soft tissues: Bilateral inguinal hernias containing herniated fat, with partial herniation of the bladder dome into the proximal right inguinal hernia and a small amount of fluid in the right inguinal hernia. No bowel herniation. No gross features of strangulation. IMPRESSION: 1. No vascular abnormalities predisposing to mesenteric ischemia/bowel ischemia. 2. 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 3. Large volume colonic stool suggesting constipation, with rectal fecal impaction. 4. Evidence of stercoral colitis in the rectum and distal sigmoid colon. No perforation or abscess. 5. Small to moderate hiatal hernia with moderate distal esophageal wall thickening suggesting esophagitis. 6. Fatty liver. 7. Gallbladder wall thickening/edema with numerous gallstones, correlate clinically for cholecystitis. Consider sonographic assessment as clinically indicated. Nondilated bile ducts. 8. Mild left hydronephrosis and hydroureter with ureteral wall thickening and periureteral stranding suspicious for UTI. 9. Bladder wall thickening suspicious for cystitis, versus reactive changes. The rightward bladder dome partially herniates into the right inguinal hernia. 10. Unchanged masslike soft tissue density along the left internal iliac vessels and left lateral pelvic sidewall to presacral distribution, with extension in the bilateral sacral foramina and sacral spinal canal, similar to prior exams, possibly related to the patient's clinically described lymphoma, versus residual chronic posttreatment changes. Recommend management per treatment protocol. 11. Additional nonemergent findings detailed above.
--- NOTE | 2024-03-11 20:45 | ECG_ITS ---
APPROVED REPORT Exam: Resting ECG HR:105 bpm ECG Measurements Heart Rate 105 AXES AK 135 P 67 QRSd 92 QRS -49 QT 364 T 74 QTc 425 Conclusion Sinus tachycardia Left anterior fascicular block Old septal CO with Q waves, but no acute ischemic change Electronically signed by : TERESSA CARY, 03/11/2024 22:37:28
--- NOTE | 2024-03-11 20:46 | ED_ITS ---
Discharge Plan Disposition Patient Disposition: Admitted Chief Complaint: Abdominal Pain Prescriptions Prescriptions: No Action lisinopril 20 mg tablet 20 mg PO DAILY Qty: 90 4RF oxybutynin chloride 5 mg tablet 10 mg PO DAILY Qty: 90 4RF atorvastatin 10 mg tablet 10 mg PO DAILY Qty: 30 2RF duloxetine 30 mg capsule,delayed release(DR/EC) 30 mg PO DAILY 90 Days Qty: 90 4RF Referrals Follow up/Referrals: Prateek Best DO [Primary Care Provider] - See instructions Clinical Impressions Clinical Impression: Obstipation, Cholelithiasis, Bowel obstruction, Vomiting Instructions Patient Instructions: DI for Acute Abdominal Pain Discharge ED Provider: Saleem Lozano General Adult HPI General Chief complaint: Abdominal Pain Stated complaint: nausea, bloating Time Seen by Provider: 03/11/24 20:31 Mode of Arrival: Wheelchair Source of Information: Patient Limitations: No Limitations Description of Symptoms (Recalled from ER Triage Doc. by RN): Patient to ED in wheelchair with complaints of abdominal bloating x1day, and increased nausea. Reports normal bowel movement this AM. Pt does straight cath due to nurogenic issues, bladder scanner revealed 52ml currently in bladder. Afebrile at this time History of Present Illness HPI narrative: Please note that above description of symptoms, in this electronic medical record under categorization of recalled from ER triage doctor by RN are reflective of an initial nursing assessment, however, is not reflective of my full history and physical exam that was personally taken and clarified. Consequentially, this preceding description of symptoms, which may include the patient's categorized chief complaint in the EMR, do not reflect my personal clinical impression, and the ultimate description of history of present illness and patient stated complaints should be deferred to this section of the note. Unless stated otherwise or congruent with this section of the note, additional signs, symptoms, or incongruence should be interpreted as inaccurate with my clinical impression. Related Data Previous Rx's Medication Instructions Recorded duloxetine 30 mg capsule,delayed 30 mg PO DAILY 90 days #90 caps 12/12/23 release atorvastatin 10 mg tablet 10 mg PO DAILY #30 tabs 02/26/24 lisinopril 20 mg tablet 20 mg PO DAILY #90 tabs 02/26/24 oxybutynin chloride 5 mg tablet 10 mg (2 x 5 mg) PO DAILY #90 tabs 02/26/24 Allergies Allergy/AdvReac Type Severity Reaction Status Date / Time No Known Allergies Allergy Verified 02/26/24 09:39 [facility] Disclaimer: The information contained in this section may have been updated after the patient was seen, as this information can be updated by other users. Medical History Shingles Patient's shingles has improved. Will stop the acyclovir there is no reason to continue this. Apparently the pain treatment center did not call him so having a block is perhaps past the window. We will see why he was never called about this. Although his pain is more than just his shingles as he does have degenerative disease and other issues I will give him 3 months of his medications and see him back then. He has multiple visits with the [facility] and having to come in here every month for refills would be an added burden for him. So we will see him back in 3 months. 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 Does modify food intake to softs but is concerned it seems tighter. Evaluate for need for dilation Change in bowel habit increased bm to 4-5 times a day soft stools. Denies any tarry stools or BRB. Due for colonoscopy Dental caries Cancer Surgical History History of bone marrow biopsy History of radical neck dissection doing well, some limited ROM but appears healthy and well Family History Other Family history of diabetes mellitus type II Family history of tuberculosis Social History Smoking Status: Never smoker alcohol intake: former substance use type: denies use current occupational status: retired Travel in the last 8 weeks: None household members: none housing: apartment lives independently: Yes marital status: single education level: high school caffeine: Yes special albert needs: No do you feel safe at home: Yes victim of physical abuse: No victim of emotional abuse: No victim of sexual abuse: No would you like helpful sources: No ROS Obtained: Yes All systems reviewed & no additional complaints except as documented Physical Exam General General appearance: alert and in no apparent distress Head Head exam: atraumatic and normocephalic Eye Eye exam: Present normal appearance, PERRL and EOMI Neck Neck exam: Present normal inspection, full ROM and trachea midline Respiratory Respiratory exam: Present normal lung sounds bilaterally; Absent respiratory distress, wheezes, stridor, accessory muscle use or prolonged expiratory phase Cardiovascular Cardiovascular exam: Present normal rhythm, tachycardia and other (Pulses equal symmetric in upper and lower extremities) Abdominal Exam Abdominal exam: Present soft; Absent distention, tenderness, guarding, rebound, rigidity or pulsatile mass Comment: Previous G-tube scar Extremities Exam Extremities exam: Absent edema Neurological Exam Neurological exam: Present alert, oriented X3 and CN II-XII intact; Absent motor sensory deficit Skin Skin exam: Present warm and dry; Absent diaphoresis or erythema Medical Decision Making Medical Records Medical records reviewed: Yes I reviewed the patient's medical records. Beka Inquiry Pt receiving controlled substance: No Beka was queried for this patient: No Vital Signs: 03/11/24 20:16 03/11/24 21:00 03/11/24 21:30 Temperature 97.8 F Temperature Source Oral Pulse Rate 108 H 110 H Pulse Rate [Right] 107 H Respiratory Rate 16 16 14 Blood Pressure 190/100 H 163/99 H Blood Pressure [Right Arm] 183/103 H Blood Pressure Mean 122 115 Blood Pressure Mean [Right Arm] 129 Blood Pressure Source [Right Arm] Automatic Cuff Blood Pressure Position [Right Arm] Sitting 02 Sat by Pulse Oximetry 100 98 99 Oxygen Delivery Method Room Air Room Air Room Air 03/11/24 22:00 Temperature Temperature Source Pulse Rate 100 H Pulse Rate [Right] Respiratory Rate 13 Blood Pressure 182/97 H Blood Pressure [Right Arm] Blood Pressure Mean 110 Blood Pressure Mean [Right Arm] Blood Pressure Source [Right Arm] Blood Pressure Position [Right Arm] 02 Sat by Pulse Oximetry 99 Oxygen Delivery Method Room Air Lab Data Lab Results 03/11/24 20:45: WBC 20.0 H, RBC 4.70, Hgb 13.6 L, Hct 42.0, MCV 89.3, MCH 29.0, MCHC 32.4, RDW 16.5, Plt Count 517 H, MPV 7.0 L, Neut % (Auto) 93.9 H, Lymph % (Auto) 2.4 L, [place] % (Auto) 3.4, Eos % (Auto) 0.2, Baso % (Auto) 0.1, Neut # (Auto) 18.8 H, Lymph # (Auto) 0.5 L, [place] # (Auto) 0.7, Eos # (Auto) 0.0, Baso # (Auto) 0.0, Total Counted 100, Neutrophils % (Manual) 93 H, Lymphocytes % (Manual) 5 L, Monocytes % (Manual) 2, Platelet Estimate Normal, RBC Morphology Normal, Sodium 139, Potassium 3.7, Chloride 100, Carbon Dioxide 29, Anion Gap 13.7, BUN 26 H, Creatinine 0.60 L, Estimated Creat Clear 53, Estimated GFR 130, Est GFR ( Amer) 157, Glucose 181 H, Hemoglobin A1c 4.8, Lactate 2.7 H, C alcium 10.4 H, Magnesium 1.8, Total Bilirubin 0.4, AST 41, ALT 36, Alkaline Phosphatase 134 H, Troponin I < 0.01, Total Protein 7.7 D, Albumin 4.8, Globulin 2.9, Albumin/Globulin Ratio 1.7, Triglycerides 42, Cholesterol 241 H, LDL Cholesterol Direct 112.80, VLDL Cholesterol 8, HDL Cholesterol 88 H, Cholesterol/HDL Ratio 2.7, Lipase 28 03/11/24 21:15: Urine Color Yellow, Urine Appearance Clear, Urine pH 8.0, Ur Specific [place] 1.015, Urine Protein 1+, Urine Glucose (UA) Negative, Urine Ketones Negative, Urine Blood Negative, Urine Nitrate Positive, Urine Bilirubin Negative, Urine Urobilinogen 0.2, Ur Leukocyte Esterase 1+ A, Urine RBC Occasional, Urine WBC 3-5, Ur Squamous Epith Cells 3-5, Amorphous Sediment Trace, Urine Bacteria 1+ 03/11/24 20:45 03/11/24 20:45 Orders (Tests/Meds): ED MEDICATIONS Generic Name Dose Route Start Last Admin Trade Name Freq PRN Reason Stop Dose Admin Lactated Ringer's 1,910 mls @ 955 mls/hr 03/11/24 21:12 03/11/24 21:28 Lactated Ringer's 1000 Ml Bag 30 ml/kg infuse over 2 hr (1910 ml) 03/11/24 23:11 955 mls/hr IV Administration .Q2H ONE Sodium Chloride 10 ml 03/11/24 21:25 Sodium Chloride 0.9% 10ml Vial IV 04/10/24 21:24 NEEDED PRN dilute protonix Sodium Chloride 10 ml 03/11/24 21:44 03/11/24 21:44 Sodium Chloride 0.9% 10ml Syr (Rad Only) IV 04/10/24 21:43 10 ml NEEDED PRN Administration Maintain IV Site Discontinued Medications Generic Name Dose Route Start Last Admin Trade Name Otoniel PRN Reason Stop Dose Admin Lactated Ringer's 1,000 mls @ 999 mls/hr 03/11/24 20:37 03/11/24 21:30 Lactated Ringer's 1000 Ml Bag IV 03/11/24 21:37 Not Given .Q1H1M ONE Ampicillin Sodium/Sulbactam 100 mls @ 200 mls/hr 03/11/24 21:12 03/11/24 21:54 Sodium 3 gm/ Sodium Chloride IV 03/11/24 21:13 Not Given ONCE ONE Ampicillin Sodium/Sulbactam 100 mls @ 200 mls/hr 03/11/24 21:53 03/11/24 21:54 Sodium 3 gm/ Sodium Chloride IV 03/11/24 21:54 200 mls/hr ONCE ONE Administration Iopamidol 100 ml 03/11/24 21:44 03/11/24 21:45 Iopamidol-370 (76%);100ml Bottle IV 03/11/24 21:45 100 ml ONCE ONE Administration Ketorolac Tromethamine 15 mg 03/11/24 20:37 03/11/24 21:27 Ketorolac 30mg/Ml Vial IV 03/11/24 20:38 15 mg ONCE ONE Administration Lidocaine HCl 15 ml 03/11/24 22:30 03/11/24 22:35 Lidocaine 2% Viscous Kathy 15ml Udc PO 03/11/24 22:31 15 ml ONCE ONE Administration Ondansetron HCl 4 mg 03/11/24 20:37 03/11/24 21:27 Ondansetron 4mg/2ml Vial IV 03/11/24 20:38 4 mg ONCE ONE Administration Pantoprazole Sodium 40 mg 03/11/24 21:25 03/11/24 21:52 Pantoprazole 40mg Vial IV 03/11/24 21:26 40 mg ONCE ONE Administration Sodium Chloride 50 ml 03/11/24 21:44 03/11/24 21:45 0.9 % Sodium Chloride 50 Ml Vial IV 03/11/24 21:45 50 ml ONCE ONE Administration ORDERS Category Date Time Status CT angio abdomen pelvis Stat Cat Scan 03/11/24 20:37 Completed KUB (single view) [XR KUB] Stat Exams 03/11/24 22:43 Taken POCUS Point of Care (ER Only) Stat Exams 03/11/24 22:07 Taken Complete Blood Count Auto Diff Stat Lab 03/11/24 20:45 Completed Comprehensive Metabolic Panel Stat Lab 03/11/24 20:45 Completed Hemoglobin A1C Stat Lab 03/11/24 20:45 Completed Lactic Acid Stat Lab 03/11/24 20:45 Completed Lipase Stat Lab 03/11/24 20:45 Completed Lipid Panel Stat Lab 03/11/24 20:45 Completed Magnesium Stat Lab 03/11/24 20:45 Completed Troponin I Q3H Lab 03/11/24 23:45 Ordered Troponin I Q3H Lab 03/12/24 02:45 Ordered Troponin I Stat Lab 03/11/24 20:45 Completed Urinalysis and Microscopic Stat Lab 03/11/24 21:15 Completed Blood Culture Stat Micro 03/11/24 22:10 Received Urine Culture Stat Micro 03/11/24 21:15 Received Medical Decision Narrative: 78-year-old male history of hypertension, hyperlipidemia, cholelithiasis, 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 Patient states he woke up around 7 AM today, 03/11. Has had progressively worsening abdominal pain and distention. He describes as more of a discomfort, it is diffuse, does not radiate. Associated with anorexia, no p.o. intake today, dry heaving throughout the day that is productive of yellow phlegm and no blood or bile. Had a bowel movement just before arrival, he states it was large, normal for him, no blood or abnormalities. No fevers or chills. He has never had abdominal pain like this in the past and has not taken anything for the pain and does not notice anything that makes it any better or worse. No urinary symptoms. History was obtained via conversation with patient. On arrival, patient hemodynamically stable, alert, oriented x4, appropriate, GCS 15, moving all extremities spontaneously, pupils equal and reactive to light. Full physical exam performed and significant for uncomfortable appearing man who is in no acute distress. He is hypertensive and tachycardic, unknown if this is due to pain or is chronic. Abdomen is soft, nontender on my exam, nondistended. No overlying skin changes. Patient states that is diffusely uncomfortable, but distractible. No flank tenderness. Differential includes PUD, gastritis, enteritis, gastroenteritis, pancreatitis, SBO, colitis, diverticulitis, nephrolithiasis, UTI, cholecystitis, choledocholithiasis, appendicitis, torsion, hepatitis, aortic pathology, mesenteric ischemia among others. Patient placed on continuous cardiac monitoring and continuous pulse ox with initial blood pressure 183/103, heart rate 107, saturation 100% on room air. Independent interpretation of EKG shows sinus tachycardia 105 beats a minute ID interval 135, QRS 92, QTc 425. No ST changes concerning for ischemia. No T wave changes concerning for acute ischemia. Patient does have leftward axis. Patient was given Zofran, Toradol, ondansetron for symptomatic management and correction of underlying abnormalities. Workup independently interpreted and significant for leukocytosis 20,000 with neutrophilia. Also reactive thrombocytosis 517. Patient's hemoglobin 13.6. Kidney function normal. Patient's lactate elevated 2.7. Troponin negative, lipase negative. UA with bacteria, leukocyte Estrace, nitrates, protein concerning for UTI. CT angio of the abdomen pelvis with severe dilation of the stomach and proximal small bowel concerning for SBO versus obstipation given large stool burden. Patient also has large gallbladder with too numerous to count stones. No ductal dilation in the liver. LFTs are nonactionable as well. See radiology read for full review of final results. Bedside [id number] ultrasound with thickened gallbladder wall, no pericholecystic fluid. Enema was administered. Patient given 3 g of Unasyn. NG tube was placed and 650 mL of feculent material obtained. Hospital medicine contacted and case was discussed at length for admission, bowel regimen, serial abdominal exams, and concern for SBO versus obstipation. Because patient high risk for clinical decompensation, deemed appropriate for inpatient admission. Results were relayed to patient who voiced understanding and patient was agreeable to inpatient admission and management. Patient was admitted to the hospital for further definitive management. 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 Electronic screen examiner of the spoken language may permit errors. Although I have reviewed the note, some errors may still exist. Procedures Limited Ultrasound Indication:: Limited RUQ ultrasound Indication: Vomiting, abdominal pain, distention, stones on CT Identified structures: -Gallbladder -Gallbladder wall -Common bile duct -Liver Findings: Sonographic Townsend sign: Absent Gallstones: Present Sludge: Absent Pericholecystic fluid: Absent Maximal GB wall thickness (mm) (normal is </= 3mm): Abnormal, edematous wall around 6 mm Common bile duct width (mm) (normal is </= 6mm): Unable to be identified secondary to shadowing from gallstones Gallbladder width (cm) (normal is < 4cm): Abnormal Gallbladder length (cm) (normal is < 10cm): Normal Impression: Cholelithiasis with thickened gallbladder wall, edema concerning for acute versus chronic cholecystitis. No sonographic Townsend sign. Images were saved to permanent archive The study was technically adequate CPT 20389-57 This study was performed by me, and I personally interpreted all images/videos. Based on my clinical judgement, these images were adequate and did not necessitate further imaging. Critical Care Critical Care Time Critical Care Time: Yes (GI) Attestation: On 03/11/24, the high probability of a clinically significant, sudden or life threatening deterioration of the following system(s) required my full and direct attention, intervention and personal management. The time I documented below is in addition to time spent performing reported procedures but includes the following listed in this critical care notation. Total Time Total Critical Care Time: 35
[2024-03-11 21:00] VITALS: BP 190/100; PULSE 108; RESP 16; O2SAT 98
[2024-03-11 21:08] LABS: Basophils % 0.1 % (0.1-2.0); Eosinophils % 0.2 % (0.1-12.0); Hemoglobin 13.6 g/dL (14.1-18.0); Lymphocytes # 0.5 K/mm3 (0.7-4.5); Lymphocytes % 2.4 % (10-50); Mean Corpuscular HGB Conc 32.4 g/dL (31.8-35.4); Mean Corpuscular Volume 89.3 fl (80-94); Monocytes # 0.7 K/mm3 (0.1-1.0); Monocytes % 3.4 % (1.7-9.3); Neutrophils # 18.8 K/mm3 (1.8-7.8); Neutrophils % 93.9 % (37.0-80.0); Platelet Count 517 K/mm3 (142-424); Red Cell Distribution Width 16.5 % (11.5-17.5)
[2024-03-11 21:12] LABS: MANUAL DIFFERENTIAL MANUAL DIFFERENTIAL (MANUAL DIFF)
[2024-03-11 21:21] LABS: Chloride 100 mmol/L (98-107); Potassium 3.7 mmoL/L (3.5-5.1); Sodium 139 mmol/L (136-145)
[2024-03-11 21:23] LABS: Alanine Aminotransferase 36 U/L (12-78); Alkaline Phosphatase 134 U/L (38-126); Anion Gap 13.7 mEq/L (5-15); Aspartate Amino Transferase 41 U/L (17-59); Bilirubin,Total 0.4 mg/dl (0.2-1.3); Blood Urea Nitrogen 26 mg/dl (9-20); Calcium 10.4 mg/dl (8.4-10.2); Carbon Dioxide 29 mmol/L (22.0-30.0); Creatinine Clearance Estimated 53 mL/min (50-200); Estimated Glomerular Filt Rate 130 ml/min (>60); GFR (African American) 157 ML/MIN (>60); Glucose 181 mg/dl (74-100)
[2024-03-11 21:24] LABS: Albumin Level 4.8 g/dl (3.5-5.0); Albumin/Globulin Ratio 1.7 (1.1-1.8); Chol/HDL Ratio 2.7 (1-3.5); Cholesterol 241 mg/dl (140-200); Globulin 2.9 g/dL (1.3-3.2); HDL Cholesterol 88 mg/dl (40-60); Lipase 28 U/L (23-300); Magnesium 1.8 mg/dl (1.6-2.3); Total Protein,Serum 7.7 g/dl (6.3-8.2); Triglycerides 42 mg/dl (30-150); VLDL Cholesterol 8 mg/dL (0-40)
[2024-03-11 21:24] LABS: Microscopic, Urine URINE MICROSCOPIC (MICROSCOPIC)
[2024-03-11 21:27] LABS: Appearance,Urine CLEAR (Clear); Bilirubin,Urine Negative (Negative); Blood, Urine Negative (Negative); Color,Urine YELLOW (Yellow); Glucose,Urine (UA) Negative (Negative); Ketones,Urine Negative (Negative); Leukocyte Esterase,Urine 1+ (Negative); Nitrate,Urine POSITIVE (Negative); Protein,Urine 1+ (Negative); Specific Gravity, Urine 1.015 (1.005-1.030); Urobilinogen,Urine 0.2 EU/dl (0.2)
[2024-03-11] MEDS: ONDANSETRON 4MG/2ML VIAL 4 MG IV (21:27)
[2024-03-11] MEDS: KETOROLAC 30MG/ML VIAL 15 MG IV (21:27)
[2024-03-11] MEDS: LACTATED RINGERS 1000ML 1,910 ML 955 ML IV (21:28)
[2024-03-11 21:30] VITALS: BP 163/99; PULSE 110; RESP 14; O2SAT 99
[2024-03-11 21:31] LABS: Hemoglobin A1C 4.8 % (4.0-6.0); Lactic Acid 2.7 mmol/L (0.7-2.1)
[2024-03-11 21:42] LABS: Amorphous Sediment,Urine Trace /lpf; Bacteria,Urine 1+ /lpf; RBC,Urine Occasional #/hpf (0-3)
[2024-03-11 21:42] LABS: Troponin I < 0.01 ng/ml (0.00-0.034)
[2024-03-11] MEDS: SODIUM CHLORIDE 0.9% 10ML SYR (RAD ONLY) 10 ML IV (21:44)
[2024-03-11] MEDS: IOPAMIDOL-370 (76%);100ML BOTTLE 100 ML IV (21:45)
[2024-03-11] MEDS: 0.9 % SODIUM CHLORIDE 50 ML VIAL IV (21:45)
[2024-03-11 21:46] LABS: Lymphocytes % 5 % (10-50); Monocytes % 2 % (2-9); Neutrophils % 93 % (42-76); Platelet Estimate Normal; RBC Morphology Normal; Total Cells Counted 100
[2024-03-11] MEDS: PANTOPRAZOLE 40MG VIAL 40 MG IV (21:52)
[2024-03-11] MEDS: AMPICILLIN SODIUM/SULBACTAM 3 GM in 0.9 % SODIUM CHLORIDE 100 ML IV (21:54)
[2024-03-11 22:00] VITALS: BP 182/97; PULSE 100; RESP 13; O2SAT 99
[2024-03-11] MEDS: LIDOCAINE 2% VISCOUS SOL 15ML UDC 15 ML PO (22:35)
--- NOTE | 2024-03-11 22:43 | XR_ITS ---
PROCEDURE INFORMATION: Exam: XR Abdomen Exam date and time: 03/11/2024 10:44 PM Age: 78 years old Clinical indication: Device placement; Gi device; Nasogastric tube; Additional info: Confirm ng placement TECHNIQUE: Imaging protocol: Radiologic exam of the abdomen. Views: Frontal supine view of the abdomen. 1 View. COMPARISON: CT ANGIO ABDOMEN PELVIS 03/11/2024 9:44 PM FINDINGS: Tubes, catheters and devices: Nasogastric tube in place with its tip in the proximal gastric lumen, with the side port positioned about 4 cm above the GE junction. Consider advancement by 7 cm. Lungs: Pulmonary hyperexpansion with mild diaphragmatic flattening suggesting COPD. Gastrointestinal tract: Large volume colonic stool suggesting constipation. Intraperitoneal space: No free air below the diaphragm. Organs: Contrast in the bilateral renal collecting systems with mild left pelvicaliectasis again noted. Vasculature: Mild aortic ectasia. Bones/joints: Unremarkable. IMPRESSION: 1. Nasogastric tube tip in the proximal stomach, consider advancement by 7 cm. 2. Additional nonemergent findings detailed above.
--- NOTE | 2024-03-11 22:58 | PC.NURSE ---
House notified for admission
--- NOTE | 2024-03-11 23:10 | PC.NURSE ---
Reviewed KUB results with ER Provider. Provider ok with current placement as long as contents are aspirated.
--- NOTE | 2024-03-11 23:12 | P.HP_ITS ---
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 Patient states he woke up around 7 AM today, 03/11. Has h ad progressively worsening abdominal pain and distention. last BM today before coming to hospital. admitted for further management and treatment. [facility] Disclaimer: The information contained in this section may have been updated after the patient was seen, as this information can be updated by other users. Medical History (Updated 03/12/24 @ 12:57 by Rip Perez MD) Shingles History of tuberculosis History of esophageal stricture Change in bowel habit Dental caries Cancer Surgical History (Updated 03/12/24 @ 00:02 by Sloane Lindsey RN) History of neck surgery History of bone marrow biopsy History of radical neck dissection Family History Other Family history of diabetes mellitus type II Family history of tuberculosis Social History (Updated 03/12/24 @ 00:03 by Sloane Lindsey RN) Smoking Status: Former smoker tobacco type: cigarettes alcohol intake: never substance use type: denies use current occupational status: retired Travel in the last 8 weeks: None household members: none housing: apartment lives independently: Yes marital status: single education level: high school caffeine: Yes special albert needs: No do you feel safe at home: Yes victim of physical abuse: No victim of emotional abuse: No victim of sexual abuse: No would you like helpful sources: No Review of Systems Review of Systems Review of systems:: pertinent systems reviewed and negative unless documented below Meds Home Medications and Allergies Home Medications Medication Instructions Recorded Confirmed Type lisinopril 20 mg tablet 20 mg PO DAILY 03/12/24 03/12/24 History New Prescriptions to Start Prescriptions: Allergies Allergy/AdvReac Type Severity Reaction Status Date / Time No Known Allergies Allergy Verified 02/26/24 09:39 Exam Data for Last 24 hours Vital signs and Labs for Last 24 Hours: Temp Pulse Resp BP Pulse Ox O2 Del Method 97.8 F 100 H 13 182/97 H 99 Room Air 03/11/24 20:16 03/11/24 22:00 03/11/24 22:00 03/11/24 22:00 03/11/24 22:00 03/11/24 22:00 Laboratory Results - last 24 hr 03/11/24 20:45: WBC 20.0 H, RBC 4.70, Hgb 13.6 L, Hct 42.0, MCV 89.3, MCH 29.0, MCHC 32.4, RDW 16.5, Plt Count 517 H, MPV 7.0 L, Neut % (Auto) 93.9 H, Lymph % (Auto) 2.4 L, Rogers % (Auto) 3.4, Eos % (Auto) 0.2, Baso % (Auto) 0.1, Neut # (Auto) 18.8 H, Lymph # (Auto) 0.5 L, Rogers # (Auto) 0.7, Eos # (Auto) 0.0, Baso # (Auto) 0.0, Total Counted 100, Neutrophils % (Manual) 93 H, Lymphocytes % (Manual) 5 L, Monocytes % (Manual) 2, Platelet Estimate Normal, RBC Morphology Normal, Sodium 139, Potassium 3.7, Chloride 100, Carbon Dioxide 29, Anion Gap 13.7, BUN 26 H, Creatinine 0.60 L, Estimated Creat Clear 53, Estimated GFR 130, Est GFR ( Amer) 157, Glucose 181 H, Hemoglobin A1c 4.8, Lactate 2.7 H, Calcium 10.4 H, Magnesium 1.8, Total Bilirubin 0.4, AST 41, ALT 36, Alkaline Phosphatase 134 H, Troponin I < 0.01, Total Protein 7.7 D, Albumin 4.8, Globulin 2.9, Albumin/Globulin Ratio 1.7, Triglycerides 42, Cholesterol 241 H, LDL Cholesterol Direct 112.80, VLDL Cholesterol 8, HDL Cholesterol 88 H, Cholesterol/HDL Ratio 2.7, Lipase 28 03/11/24 21:15: Urine Color Yellow, Urine Appearance Clear, Urine pH 8.0, Ur Specific [place] 1.015, Urine Protein 1+, Urine Glucose (UA) Negative, Urine Ketones Negative, Urine Blood Negative, Urine Nitrate Positive, Urine Bilirubin Negative, Urine Urobilinogen 0.2, Ur Leukocyte Esterase 1+ A, Urine RBC Occasional, Urine WBC 3-5, Ur Squamous Epith Cells 3-5, Amorphous Sediment Trace, Urine Bacteria 1+ I & O for Last 24 hours: Intake & Output 03/08/24 03/09/24 03/10/24 03/11/24 23:59 23:59 23:59 23:59 Weight 63.503 kg Constitutional Constitutional: mild distress and cooperative *Routine HEENT Exam Head: Present normocephalic Eye: Present EOMI and PERRL ENT: Present mucous membranes moist *Routine Neck Exam Neck: Present supple; Absent lymphadenopathy *Routine Respiratory Exam Respiratory: Present CTA bilaterally *Routine Cardiovascular Exam Cardiovascular: Present RRR *Routine Abdominal Exam Abdominal: Present soft, normoactive bowel sounds, tenderness and distended *Routine Rectal Exam Rectal:: deferred *Routine Genitalia Exam Genitalia:: deferred *Routine Extremities Exam Extremities: Absent cyanosis, clubbing or edema *Routine Skin Exam Skin: Present warm; Absent rash *Routine Neurological Exam Neurological: Present alert and oriented X3 H&P: Result Imaging and Cardiology EKG: Status: image reviewed by me, Preliminary report and final report CT scan - abdomen: Status: image reviewed by me, Preliminary report and final report KUB: Status: image reviewed by me, Preliminary report and final report Assessment and Plan *Assessment and plan (1) Abdominal pain: Status: Acute Qualifiers: Abdominal location: generalized Qualified Code(s): R10.84 - Generalized abdominal pain Category: Medical Code(s): R10.9 - Unspecified abdominal pain (2) Bowel obstruction: Status: Acute Qualifiers: Intestinal obstruction type: fecal impaction Qualified Code(s): K56.41 - Fecal impaction Category: Medical Code(s): K56.609 - Unspecified intestinal obstruction, unspecified as to partial versus complete obstruction (3) UTI (urinary tract infection): Status: Acute Qualifiers: Hematuria presence: without hematuria Urinary tract infection type: s ite unspecified Qualified Code(s): N39.0 - Urinary tract infection, site not specified Category: Medical Code(s): N39.0 - Urinary tract infection, site not specified (4) Obstipation: Status: Acute Category: Medical Code(s): K59.00 - Constipation, unspecified (5) Cholelithiasis: Status: Acute Qualifiers: Biliary obstruction: without biliary obstruction Cholecystitis presence: without cholecystitis Cholelithiasis location: gallbladder and bile duct Qualified Code(s): K80.70 - Calculus of gallbladder and bile duct without cholecystitis without obstruction Category: Medical Code(s): K80.20 - Calculus of gallbladder without cholecystitis without obstruction (6) DLBCL (diffuse large B cell lymphoma): Status: Acute Qualifiers: Lymphoma site: intra-abdominal nodes Qualified Code(s): C83.33 - Diffuse large B-cell lymphoma, intra-abdominal lymph nodes Category: Medical Code(s): C83.30 - Diffuse large B-cell lymphoma, unspecified site (7) Hypertension: Status: Acute Qualifiers: Hypertension type: unspecified Qualified Code(s): I10 - Essential (primary) hypertension Category: Medical Code(s): I10 - Essential (primary) hypertension Plan 78-year-old male history of hypertension, hyperlipidemia, cholelithiasis, 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 Workup independently interpreted and significant for leukocytosis 20,000 with neutrophilia. Also reactive thrombocytosis 517. Patient's hemoglobin 13.6. Kidney function normal. Patient's lactate elevated 2.7. Troponin negative, lipase negative. UA with bacteria, leukocyte Estrace, nitrates, protein concerning for UTI. CT angio of the abdomen pelvis with severe dilation of the stomach and proximal small bowel concerning for SBO versus obstipation given large stool burden. agreed for admission after discussion with ED provider about findings and benefits of inpatient management. Plan as follow: -Abdominal pain with nausea and vomiting: Bowel obstruction, suspected for fecal impaction. This should to rule bowel obstruction Chronic history of constipation and cholelithiasis Urinary tract infection Admit patient for inpatient management. Dispo MedSurg For continued cardiac monitoring Keep n.p.o. NG tube in place Surgical consult Aggressive bowel regimen. Including enemas With started on ceftriaxone and Flagyl Urinary culture Monitor daily labs. Watch WBC CT of the abdomen reviewed -History of diffuse l B-cell lymphoma, with spinal lumbar radiculopathic and cauda equina syndrome Patient recently started on oxycodone for pathological fracture. Suspected opioid had worsening constipation Hypertension: Resume lisinopril On Lovenox and Protonix for prophylaxis Full code Rounded on patient after nurse practitioner. Personally examined and in terviewed patient. Agree with exam findings and care plan as documented.
--- NOTE | 2024-03-11 23:20 | PC.NURSE ---
Report called to PATTY Batista
--- NOTE | 2024-03-11 23:40 | PC.NURSE ---
pt arrived to floor at this time
[2024-03-11 23:51] VITALS: BP 172/102; PULSE 105; RESP 15; TEMP 36.6; O2SAT 99
[2024-03-11 23:53] VITALS: BP 172/102; PULSE 106; RESP 16; TEMP 36.5; O2SAT 98
[2024-03-12 00:02] LABS: Reflex Lactic Add Lactic Reflex
[2024-03-12 00:18] VITALS: PULSE 100
[2024-03-12] MEDS: 0.9 % SODIUM CHLORIDE 1000ML 1,000 ML 50 ML IV (00:20)
[2024-03-12] MEDS: DOCUSATE SODIUM 100 MG CAPSULE PO ×3 (00:21→21:44)
[2024-03-12] MEDS: CEFTRIAXONE 1 GM 1 GM in 0.9 % SODIUM CHLORIDE 50 ML IV ×2 (00:21→21:44)
[2024-03-12] MEDS: MINERAL OIL ENEMA 133ML 133 ML RC (00:36)
[2024-03-12 00:52] LABS: Lactic Acid Follow Up (RFLX 1) 2.1 mmol/L (0.7-2.1)
[2024-03-12 00:55] LABS: Troponin I < 0.01 ng/ml (0.00-0.034)
[2024-03-12] MEDS: METRONIDAZ/SOD CHL 500 MG/100 ML PIGGYBACK 100 MG IV ×3 (01:34→17:57)
[2024-03-12 02:31] LABS: Reflex Lactic (2 hrs) Add Lactic Reflex
[2024-03-12 03:17] LABS: Lactic Acid Follow up (RFLX 2) 2.2 mmol/L (0.7-2.1); Troponin I < 0.01 ng/ml (0.00-0.034)
[2024-03-12 04:00] VITALS: BP 166/90; PULSE 102; PULSE 93; RESP 16; TEMP 36.7; O2SAT 100; BMI 21.7
--- NOTE | 2024-03-12 05:21 | PC.NURSE ---
Patient is A&Ox4 and on RA. Pt has active bowel sounds in all quadrants. Enema was given earlier in shift. No BM at this time. Pt assisted in strait cath. He has not complained of any pain and has no complaints at this time. Call light within reach.
[2024-03-12 06:54] LABS: Basophils % 0.1 % (0.1-2.0); Hematocrit 39.7 % (42.0-52.0); Hemoglobin 12.8 g/dL (14.1-18.0); Lymphocytes # 0.6 K/mm3 (0.7-4.5); Lymphocytes % 3.5 % (10-50); Mean Corpuscular HGB Conc 32.3 g/dL (31.8-35.4); Mean Corpuscular Hemoglobin 29.7 pg (27.0-31.2); Mean Corpuscular Volume 91.9 fl (80-94); Monocytes # 1.5 K/mm3 (0.1-1.0); Monocytes % 8.1 % (1.7-9.3); Neutrophils # 16.4 K/mm3 (1.8-7.8); Neutrophils % 88.3 % (37.0-80.0); Platelet Count 416 K/mm3 (142-424); Red Blood Count 4.32 M/mm3 (4.60-6.20); Red Cell Distribution Width 16.7 % (11.5-17.5); White Blood Count 18.6 K/mm3 (4.8-10.8)
[2024-03-12 07:03] LABS: Alanine Aminotransferase 25 U/L (12-78); Albumin Level 3.9 g/dl (3.5-5.0); Albumin/Globulin Ratio 1.7 (1.1-1.8); Alkaline Phosphatase 107 U/L (38-126); Anion Gap 11.5 mEq/L (5-15); Aspartate Amino Transferase 36 U/L (17-59); Bilirubin,Total 0.5 mg/dl (0.2-1.3); Blood Urea Nitrogen 21 mg/dl (9-20); Calcium 9.4 mg/dl (8.4-10.2); Carbon Dioxide 27 mmol/L (22.0-30.0); Chloride 104 mmol/L (98-107); Creatinine Clearance Estimated 51 mL/min (50-200); Estimated Glomerular Filt Rate 160 ml/min (>60); GFR (African American) 194 ML/MIN (>60); Globulin 2.3 g/dL (1.3-3.2); Glucose 123 mg/dl (74-100); Magnesium 1.7 mg/dl (1.6-2.3); Potassium 3.5 mmoL/L (3.5-5.1); Sodium 139 mmol/L (136-145); Total Protein,Serum 6.2 g/dl (6.3-8.2)
[2024-03-12 07:08] LABS: MANUAL DIFFERENTIAL MANUAL DIFFERENTIAL (MANUAL DIFF)
[2024-03-12 08:00] VITALS: BP 144/80; PULSE 100; PULSE 99; RESP 18; TEMP 36.5; O2SAT 100
[2024-03-12] MEDS: MAGNESIUM SULFATE IN WATER 2 GM/50 ML PIGGYBACK IV (08:40)
[2024-03-12] MEDS: ENOXAPARIN 40MG/0.4ML SYRINGE 40 MG SQ (08:40)
[2024-03-12] MEDS: POLYETHYLENE GLYCOL 3350 17 GM PACKET PO (08:41)
[2024-03-12 08:42] LABS: Lymphocytes % 3 % (10-50); Monocytes % 10 % (2-9); Neutrophils % 86 % (42-76); Platelet Estimate Slight Increase; RBC Morphology Normal; Total Cells Counted 100
--- NOTE | 2024-03-12 10:07 | HMH.PHAINT1 ---
Pharmacy Intervention Comments: MEDICATION RECONCILIATION COMPLETED ON PATIENT USING EXTERNAL FILL HISTORY FROM PHARMACY AND PATIENT INTERVIEW. -MANJINDER HEATH, WILLIED
[2024-03-12 12:00] VITALS: BP 137/80; PULSE 90; PULSE 97; RESP 20; TEMP 36.6; O2SAT 98
--- NOTE | 2024-03-12 12:55 | EXP.ACUTE.PN ---
Subjective *Date: 03/12/24 *Time: 12:55 Interval history: Patient states feeling little bit better this morning after decompression of his bili. Interested in drinking. Has not had a significant bowel movement. Does not take a bowel regimen at home. No mario nausea or emesis. Stable on room air. Medical Exam Vital signs and Labs for Last 24 Hours: Vital Signs Temp Pulse Pulse Resp BP BP Pulse Ox 03/12/24 11:00 03/12/24 09:00 03/12/24 08:00 03/12/24 08:00 100 H 03/12/24 08:00 97.7 F 99 H 18 144/80 H 100 03/12/24 06:52 03/12/24 05:00 03/12/24 04:00 98.1 F 102 H 16 166/90 H 100 03/12/24 04:00 93 H 03/12/24 03:00 03/12/24 01:16 03/12/24 01:00 03/12/24 00:18 100 H 03/11/24 23:53 97.7 F 106 H 16 172/102 H 98 03/11/24 23:51 97.9 F 105 H 15 172/102 H 03/11/24 22:00 100 H 13 182/97 H 99 03/11/24 21:30 110 H 14 163/99 H 99 03/11/24 21:00 108 H 16 190/100 H 98 03/11/24 20:16 97.8 F 107 H 16 183/103 H 100 O2 Del Method 03/12/24 11:00 Room Air 03/12/24 09:00 Room Air 03/12/24 08:00 Room Air 03/12/24 08:00 03/12/24 08:00 Room Air 03/12/24 06:52 Room Air 03/12/24 05:00 Room Air 03/12/24 04:00 Room Air 03/12/24 04:00 03/12/24 03:00 Room Air 03/12/24 01:16 Room Air 03/12/24 01:00 Room Air 03/12/24 00:18 03/11/24 23:53 Room Air 03/11/24 23:51 Room Air 03/11/24 22:00 Room Air 03/11/24 21:30 Room Air 07/16/24 21:00 Room Air 03/11/24 20:16 Room Air Intake and Output 03/11/24 03/12/24 03/12/24 23:59 07:59 15:59 Intake Total 330 / 330 Output Total 600 / 950 350 / 950 Balance -270 / -620 -350 / -620 Intake: Intake, Total IV Amount 330 / 330 0.9 % Sodium Chloride 1000ML 1, 330 / 330 000 ml @ 50 mls/hr IV .Q20H [facility] Rx#:[id number] Output: Output, Urine Amount 350 / 350 Output, Urine Amount (Catheter) 600 / 600 Straight 600 / 600 Other: Number of Bowel Movements 1 1 Weight 63.503 kg 61.507 kg Patient Weight 03/12/24 23:59 Weight 61.507 kg Laboratory Results - last 24 hr 03/11/24 20:45: WBC 20.0 H, RBC 4.70, Hgb 13.6 L, Hct 42.0, MCV 89.3, MCH 29.0, MCHC 32.4, RDW 16.5, Plt Count 517 H, MPV 7.0 L, Neut % (Auto) 93.9 H, Lymph % (Auto) 2.4 L, Carter % (Auto) 3.4, Eos % (Auto) 0.2, Baso % (Auto) 0.1, Neut # (Auto) 18.8 H, Lymph # (Auto) 0.5 L, Carter # (Auto) 0.7, Eos # (Auto) 0.0, Baso # (Auto) 0.0, Total Counted 100, Neutrophils % (Manual) 93 H, Lymphocytes % (Manual) 5 L, Monocytes % (Manual) 2, Platelet Estimate Normal, RBC Morphology Normal, Sodium 139, Potassium 3.7, Chloride 100, Carbon Dioxide 29, Anion Gap 13.7, BUN 26 H, Creatinine 0.60 L, Estimated Creat Clear 53, Estimated GFR 130, Est GFR ( Amer) 157, Glucose 181 H, Hemoglobin A1c 4.8, Lactate 2.7 H, Calcium 10.4 H, Magnesium 1.8, Total Bilirubin 0.4, AST 41, ALT 36, Alkaline Phosphatase 134 H, Troponin I < 0.01, Total Protein 7.7 D, Albumin 4.8, Globulin 2.9, Albumin/Globulin Ratio 1.7, Triglycerides 42, Cholesterol 241 H, LDL Cholesterol Direct 112.80, VLDL Cholesterol 8, HDL Cholesterol 88 H, Cholesterol/HDL Ratio 2.7, Lipase 28 03/11/24 21:15: Urine Color Yellow, Urine Appearance Clear, Urine pH 8.0, Ur Specific [place] 1.015, Urine Protein 1+, Urine Glucose (UA) Negative, Urine Ketones Negative, Urine Blood Negative, Urine Nitrate Positive, Urine Bilirubin Negative, Urine Urobilinogen 0.2, Ur Leukocyte Esterase 1+ A, Urine RBC Occasional, Urine WBC 3-5, Ur Squamous Epith Cells 3-5, Amorphous Sediment Trace, Urine Bacteria 1+ 03/12/24 00:27: Lactate 2.1, Troponin I < 0.01 03/12/24 02:50: Lactate 2.2 H, Troponin I < 0.01 03/12/24 06:12: WBC 18.6 H, RBC 4.32 L, Hgb 12.8 L, Hct 39.7 L, MCV 91.9, MCH 29.7, MCHC 32.3, RDW 16.7, Plt Count 416, MPV 7.0 L, Neut % (Auto) 88.3 H, Lymph % (Auto) 3.5 L, Carter % (Auto) 8.1, Eos % (Auto) 0.0 L, Baso % (Auto) 0.1, Neut # (Auto) 16.4 H, Lymph # (Auto) 0.6 L, Carter # (Auto) 1.5 H, Eos # (Auto) 0.0, Baso # (Auto) 0.0, Total Counted 100, Neutrophils % (Manual) 86 H, Lymphocytes % (Manual) 3 L, Atypical Lymphs % 1.0, Monocytes % (Manual) 10 H, Platelet Estimate Slight increase, RBC Morphology Normal, Sodium 139, Potassium 3.5, Chloride 104, Carbon Dioxide 27, Anion Gap 11.5, BUN 21 H, Creatinine 0.50 L, Estimated Creat Clear 51, Estimated GFR 160, Est GFR ( Amer) 194 D, Glucose 123 H D, Calcium 9.4, Magnesium 1.7, Total Bilirubin 0.5, AST 36, ALT 25 D, Alkaline Phosphatase 107, Total Protein 6.2 L, Albumin 3.9 D, Globulin 2.3, Albumin/Globulin Ratio 1.7 I & O for Labs for Last 24 Hours: Intake & Output 03/09/24 03/10/24 03/11/24 03/12/24 23:59 23:59 23:59 23:59 Intake Total 330 / 330 Output Total 950 / 950 Balance -620 / -620 Weight 63.503 kg 61.507 kg Microbiology Reports for the Last 24 Hours: Microbiology 03/11/24 21:15 Urine,Clean Catch Urine Culture - Preliminary Gram Negative Rods Constitutional: Present no acute distress, thin and chronically ill appearing Head: Present atraumatic and normocephalic ENT: Present normal exam Neck: Present normal inspection Respiratory: Present normal respiratory effort; Absent rhonchi, wheezes or crackles Cardiac: Present Reg Rate and Rhythm GI: Present soft, tenderness (non focal) and diminished bowel sounds; Absent distention Extremities: Present normal inspection Skin: Present intact; Absent erythema Neuro: Present alert, awake, oriented x 3 and moves all extremities Assessment and Plan *Assessment and plan (1) Bowel obstruction: Status: Acute Qualifiers: Intestinal obstruction type: fecal impaction Qualified Code(s): K56.41 - Fecal impaction Category: Medical Code(s): K56.609 - Unspecified intestinal obstruction, unspecified as to partial versus complete obstruction (2) Obstipation: Status: Acute Category: Medical Code(s): K59.00 - Constipation, unspecified (3) Abdominal pain: Status: Acute Qualifiers: Abdominal location: generalized Qualified Code(s): R10.84 - Generalized abdominal pain Category: Medical Code(s): R10.9 - Unspecified abdominal pain (4) UTI (urinary tract infection): Status: Acute Qualifiers: Urinary tract infection type: site unspecified Hematuria presence: without hematuria Qualified Code(s): N39.0 - Urinary tract infection, site not specified Category: Medical Code(s): N39.0 - Urinary tract infection, site not specified (5) Cholelithiasis: Status: Acute Qualifiers: Cholelithiasis location: gallbladder and bile duct Cholecystitis presence: without cholecystitis Biliary obstruction: without biliary obstruction Qualified Code(s): K80.70 - Calculus of gallbladder and bile duct without cholecystitis without obstruction Category: Medical Code(s): K80.20 - Calculus of gallbladder without cholecystitis without obstruction (6) DLBCL (diffuse large B cell lymphoma): Status: Acute Qualifiers: Lymphoma site: intra-abdominal nodes Qualified Code(s): C83.33 - Diffuse large B-cell lymphoma, intra-abdominal lymph nodes Category: Medical Code(s): C83.30 - Diffuse large B-cell lymphoma, unspecified site (7) Hypertension: Status: Acute Qualifiers: Hypertension type: unspecified Qualified Code(s): I10 - Essential (primary) hypertension Category: Medical Code(s): I10 - Essential (primary) hypertension (8) Cauda equina syndrome: Status: Acute Category: Medical Code(s): G83.4 - Cauda equina syndrome Plan 78-year-old male history of hypertension, hyperlipidemia, cholelithiasis, 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 Workup independently interpreted and significant for leukocytosis 20,000 with neutrophilia. Also reactive thrombocytosis 517. Patient's hemoglobin 13.6. Kidney function normal. Patient's lactate elevated 2.7. Troponin negative, lipase negative. UA with bacteria, leukocyte Estrace, nitrates, protein concerning for UTI. CT angio of the abdomen pelvis with severe dilation of the stomach and proximal small bowel concerning for SBO versus obstipation given large stool burden. agreed for admission after discussion with ED provider about findings and benefits of inpatient management. Patient feeling little bit better this morning after decompression of his abdomen/stomach. Will address aggressive bowel regimen. Hold on surgery eval at this time. Continues to require inpatient management. Plan as follows: Abdominal pain with nausea and vomiting: Bowel obstruction, suspected for fecal impaction. Chronic history of constipation and cholelithiasis Will provide additional enema this morning. Initiate on MiraLAX p.o. 17 g x 1. Monitor for improvement. Obstruction likely secondary to constipation. Will need bowel regimen once stable to discharge. NG to drain. If has bowel movement, will advance diet to clear liquids Urinary tract infection Continue ceftriaxone 1 g daily and Flagyl 500 mg 3 times a day. Urine culture pending. Will place Tan. Patient in and out caths multiple times a day at home -History of diffuse l B-cell lymphoma, with spinal lumbar radiculopathic and cauda equina syndrome Patient recently started on oxycodone for pathological fracture. Suspected opioid had worsening constipation Hypertension: Resume lisinopril On Lovenox and Protonix for prophylaxis Full code Sips and chips
[2024-03-12] MEDS: SODIUM PHOS/BIPHOSPHATE FLEET 133ML ENEMA 133 ML RC (13:41)
[2024-03-12 16:00] VITALS: BP 141/75; PULSE 100; PULSE 109; RESP 18; TEMP 36.8; O2SAT 96
--- NOTE | 2024-03-12 18:22 | PC.NURSE ---
pt has rested most of the day. pt currently lying in bed with NG tube disconnected from suction. pt had a large BM at 1820. sherwin anal area is slightly pink and red, barrier cream and dressing applied. pt denies pain. pt given mouth swabs at bedside. call light within reach, no further requests at this time.
[2024-03-12 20:00] VITALS: BP 115/94; PULSE 101; PULSE 93; RESP 18; TEMP 37.1; O2SAT 98
[2024-03-12] MEDS: PANTOPRAZOLE 40MG VIAL 40 MG IV (21:45)
[2024-03-12] MEDS: SODIUM CHLORIDE 0.9% 10ML VIAL 10 ML IV (21:45)
[2024-03-13] VITALS: BP 149/83; PULSE 116; PULSE 98; RESP 18; TEMP 36.6; O2SAT 97
[2024-03-13] MEDS: 0.9 % SODIUM CHLORIDE 1000ML 1,000 ML 50 ML IV (00:54)
[2024-03-13] MEDS: METRONIDAZ/SOD CHL 500 MG/100 ML PIGGYBACK 100 MG IV ×3 (00:55→16:42)
[2024-03-13 04:00] VITALS: BP 136/78; PULSE 102; PULSE 88; RESP 18; TEMP 37; O2SAT 97; BMI 22.0
--- NOTE | 2024-03-13 05:41 | PC.NURSE ---
Patient is alert and oriented x4. Patient has rested quite well throughout the night. Patient's heart rate has been running tachycardic on telemetry. Patient's bowel sounds were active in all quadrants. Patient had one medium bowel movement this shift around midnight; perineal care was performed and brief was changed by me. Patient's stool was brown with a mild odor and peanut butter consistency. Patient's foam dressing on bottom was replaced with a large sacrum pad to help alleviate pressure. Patient has redness on his sacrum; barrier cream was also applied this shift to the area. Patient's NG tube has remained clamped through the night. Patient also remained NPO and only had a sip of water to take one pill. Patient's silver[place] is intact; I myself emptied 425 mL of urine this shift. Patient was given his scheduled meds, as well as Rocephin and Flagyl, per OCT; patient reported that he has some difficulty taking gel pills by mouth at times. Patient did not complain of any pain or nausea this shift. He does not have any other complaints at this time. Patient is resting comfortably in bed. Normal saline is currently infusing at 50 mL/hr. Mouth swab at bedside. Call light is within reach.
[2024-03-13 07:02] LABS: Basophils % 0.2 % (0.1-2.0); Eosinophils % 0.1 % (0.1-12.0); Hemoglobin 12.3 g/dL (14.1-18.0); Lymphocytes # 0.8 K/mm3 (0.7-4.5); Mean Corpuscular HGB Conc 32.5 g/dL (31.8-35.4); Mean Corpuscular Hemoglobin 29.4 pg (27.0-31.2); Mean Corpuscular Volume 90.5 fl (80-94); Mean Platelet Volume 7.1 fl (7.4-10.4); Monocytes # 1.6 K/mm3 (0.1-1.0); Monocytes % 8.6 % (1.7-9.3); Neutrophils # 16.6 K/mm3 (1.8-7.8); Neutrophils % 87.2 % (37.0-80.0); Platelet Count 388 K/mm3 (142-424); Red Cell Distribution Width 16.5 % (11.5-17.5); White Blood Count 19.1 K/mm3 (4.8-10.8)
[2024-03-13 07:04] LABS: MANUAL DIFFERENTIAL MANUAL DIFFERENTIAL (MANUAL DIFF)
--- NOTE | 2024-03-13 07:54 | EXP.ACUTE.PN ---
Subjective *Date: 03/13/24 *Time: 17:51 Interval history: Patient doing better today. Has had multiple bowel movements overnight. No longer having any nausea or upset stomach. Would like to try clear liquids today. Afebrile. On room air. Medical Exam Vital signs and Labs for Last 24 Hours: Vital Signs Temp Pulse Pulse Resp BP Pulse Ox O2 Del Method 03/13/24 06:49 Room Air 03/13/24 05:00 Room Air 03/13/24 04:00 98.6 F 88 18 136/78 97 Room Air 03/13/24 04:00 102 H 03/13/24 03:00 Room Air 03/13/24 01:00 Room Air 03/13/24 00:00 97.9 F 98 H 18 149/83 H 97 Room Air 03/13/24 00:00 116 H 03/12/24 23:00 Room Air 03/12/24 21:00 Room Air 03/12/24 20:00 101 H 98 Room Air 03/12/24 20:00 98.8 F 101 H 18 115/94 H 98 Room Air 03/12/24 20:00 93 H 03/12/24 18:43 Room Air 03/12/24 17:00 Room Air 03/12/24 16:00 100 H 03/12/24 16:00 98.3 F 109 H 18 141/75 H 96 Room Air 03/12/24 15:00 Room Air 03/12/24 13:00 Room Air 03/12/24 12:00 90 03/12/24 12:00 97.9 F 97 H 20 137/80 98 Room Air 03/12/24 11:00 Room Air 03/12/24 09:00 Room Air 03/12/24 08:00 Room Air 03/12/24 08:00 100 H 03/12/24 08:00 97.7 F 99 H 18 144/80 H 100 Room Air Intake and Output 03/12/24 03/12/24 03/13/24 15:59 23:59 07:59 Intake Total 50 / 1440 717 / 1440 343 / 343 Output Total 350 / 1725 350 / 1725 675 / 675 Balance -300 / -285 367 / -285 -332 / -332 Intake: Intake, Oral Amount 10 / 10 Intake, Total IV Amount 50 / 1430 717 / 1430 333 / 333 0.9 % Sodium Chloride 1000ML 1, 717 / 1330 283 / 283 000 ml @ 50 mls/hr IV .Q20H [facility] Rx#:[id number] Ceftriaxone 1 gm 1 gm In 0.9 % 50 / 50 Sodium Chloride 50 ml @ 100 mls /hr IV Q24H [facility] Rx#:[id number] Magnesium Sulfate in Water 2 gm 50 / 50 In 50 ml @ 50 mls/hr IV ONCE ONE Rx#:[id number] Output: Output, Urine Amount 350 / 700 350 / 700 250 / 250 Output, Urine Amount (Catheter) 425 / 425 Straight 425 / 425 Other: Number of Unmeasured Voids 1 Number of Bowel Movements 1 1 Weight 62.171 kg Patient Weight 03/13/24 23:59 Weight 62.171 kg Laboratory Results - last 24 hr 03/11/24 21:15: Urine Color Yellow, Urine Appearance Clear, Urine pH 8.0, Ur Specific [place] 1.015, Urine Protein 1+, Urine Glucose (UA) Negative, Urine Ketones Negative, Urine Blood Negative, Urine Nitrate Positive, Urine Bilirubin Negative, Urine Urobilinogen 0.2, Ur Leukocyte Esterase 1+ A, Urine RBC Occasional, Urine WBC 3-5, Ur Squamous Epith Cells 3-5, Amorphous Sediment Trace, Urine Bacteria 1+ 03/12/24 06:12: Total Counted 100, Neutrophils % (Manual) 86 H, Lymphocytes % (Manual) 3 L, Atypical Lymphs % 1.0, Monocytes % (Manual) 10 H, Platelet Estimate Slight increase, RBC Morphology Normal 03/13/24 06:26: WBC 19.1 H, RBC 4.20 L, Hgb 12.3 L, Hct 38.0 L, MCV 90.5, MCH 29.4, MCHC 32.5, RDW 16.5, Plt Count 388, MPV 7.1 L, Neut % (Auto) 87.2 H, Lymph % (Auto) 4.0 L, [place] % (Auto) 8.6, Eos % (Auto) 0.1, Baso % (Auto) 0.2, Neut # (Auto) 16.6 H, Lymph # (Auto) 0.8, [place] # (Auto) 1.6 H, Eos # (Auto) 0.0, Baso # (Auto) 0.0 I & O for Labs for Last 24 Hours: Intake & Output 03/10/24 03/11/24 03/12/24 03/13/24 23:59 23:59 23:59 23:59 Intake Total 1097 / 1440 343 / 343 Output Total 1300 / 1725 675 / 675 Balance -203 / -285 -332 / -332 Weight 63.503 kg 61.507 kg 62.171 kg Microbiology Reports for the Last 24 Hours: Microbiology 03/11/24 22:10 Blood Blood Culture - Preliminary NO GROWTH AFTER 24 HOURS 03/11/24 22:00 Blood Blood Culture - Preliminary NO GROWTH AFTER 24 HOURS 03/11/24 21:15 Urine,Clean Catch Urine Culture - Preliminary Gram Negative Rods Constitutional: Present no acute distress, thin and chronically ill appearing Head: Present atraumatic and normocephalic ENT: Present normal exam Neck: Present normal inspection Respiratory: Present normal respiratory effort; Absent rhonchi, wheezes or crackles Cardiac: Present Reg Rate and Rhythm GI: Present soft, tenderness (non focal) and normal bowel sounds; Absent distention Extremities: Present normal inspection Skin: Present intact; Absent erythema Neuro: Present alert, awake, oriented x 3 and moves all extremities Assessment and Plan *Assessment and plan (1) Bowel obstruction: Status: Acute Qualifiers: Intestinal obstruction type: fecal impaction Qualified Code(s): K56.41 - Fecal impaction Category: Medical Code(s): K56.609 - Unspecified intestinal obstruction, unspecified as to partial versus complete obstruction (2) Obstipation: Status: Acute Category: Medical Code(s): K59.00 - Constipation, unspecified (3) Abdominal pain: Status: Acute Qualifiers: Abdominal location: generalized Qualified Code(s): R10.84 - Generalized abdominal pain Category: Medical Code(s): R10.9 - Unspecified abdominal pain (4) UTI (urinary tract infection): Status: Acute Qualifiers: Urinary tract infection type: site unspecified Hematuria presence: without hematuria Qualified Code(s): N39.0 - Urinary tract infection, site not specified Category: Medical Code(s): N39.0 - Urinary tract infection, site not specified (5) Cholelithiasis: Status: Acute Qualifiers: Cholelithiasis location: gallbladder and bile duct Cholecystitis presence: without cholecystitis Biliary obstruction: without biliary obstruction Qualified Code(s): K80.70 - Calculus of gallbladder and bile duct without cholecystitis without obstruction Category: Medical Code(s): K80.20 - Calculus of gallbladder without cholecystitis without obstruction (6) DLBCL (diffuse large B cell lymphoma): Status: Acute Qualifiers: Lymphoma site: intra-abdominal nodes Qualified Code(s): C83.33 - Diffuse large B-cell lymphoma, intra-abdominal lymph nodes Category: Medical Code(s): C83.30 - Diffuse large B-cell lymphoma, unspecified site (7) Hypertension: Status: Acute Qualifiers: Hypertension type: unspecified Qualified Code(s): I10 - Essential (primary) hypertension Category: Medical Code(s): I10 - Essential (primary) hypertension (8) Cauda equina syndrome: Status: Acute Category: Medical Code(s): G83.4 - Cauda equina syndrome Plan 78-year-old male history of hypertension, hyperlipidemia, cholelithiasis, 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 Workup independently interpreted and significant for leukocytosis 20,000 with neutrophilia. Also reactive thrombocytosis 517. Patient's hemoglobin 13.6. Kidney function normal. Patient's lactate elevated 2.7. Troponin negative, lipase negative. UA with bacteria, leukocyte Estrace, nitrates, protein concerning for UTI. CT angio of the abdomen pelvis with severe dilation of the stomach and proximal small bowel concerning for SBO versus obstipation given large stool burden. agreed for admission after discussion with ED provider about findings and benefits of inpatient management. Has had multiple bowel movements over the past 24 hours. Plan to take NG out today and advance diet. Continues to require inpatient management. Problems addressed as follows: Abdominal pain with nausea and vomiting: Bowel obstruction, suspected for fecal impaction. Chronic history of constipation and cholelithiasis -Multiple bowel movements. Tolerated enemas well. Continue docusate senna and MiraLAX daily -Remove NG today. Advance to clear liquids Urinary tract infection Urine culture positive for C. fruendii, sensitive to ceftriaxone and Levaquin. Continue ceftriaxone during admission 1 g daily. Will discontinue Flagyl. Will transition to Levaquin at discharge to complete 7 days of antibiotics. Continue Tan until discharge. Patient in and out caths at home -White cell count remains elevated at 19. Afebrile. Repeat CBC, CMP, magnesium ordered for the morning. -History of diffuse l B-cell lymphoma, with spinal lumbar radiculopathic and cauda equina syndrome Patient recently started on oxycodone for pathological fracture. Suspected opioid had worsening constipation Hypertension: continue lisinopril On Lovenox and Protonix for prophylaxis Full code clear liquid diet
[2024-03-13 08:00] VITALS: BP 155/84; PULSE 106; PULSE 120; RESP 16; TEMP 36.3; O2SAT 98
[2024-03-13 08:02] LABS: Alanine Aminotransferase 20 U/L (12-78); Albumin Level 3.7 g/dl (3.5-5.0); Albumin/Globulin Ratio 1.5 (1.1-1.8); Alkaline Phosphatase 108 U/L (38-126); Anion Gap 9.6 mEq/L (5-15); Aspartate Amino Transferase 41 U/L (17-59); Bilirubin,Total 0.7 mg/dl (0.2-1.3); Blood Urea Nitrogen 21 mg/dl (9-20); Carbon Dioxide 24 mmol/L (22.0-30.0); Chloride 108 mmol/L (98-107); Creatinine Clearance Estimated 52 mL/min (50-200); Estimated Glomerular Filt Rate 160 ml/min (>60); GFR (African American) 194 ML/MIN (>60); Globulin 2.5 g/dL (1.3-3.2); Glucose 100 mg/dl (74-100); Potassium 3.6 mmoL/L (3.5-5.1); Sodium 138 mmol/L (136-145); Total Protein,Serum 6.2 g/dl (6.3-8.2)
[2024-03-13] MEDS: POLYETHYLENE GLYCOL 3350 17 GM PACKET PO (08:26)
[2024-03-13] MEDS: DOCUSATE SODIUM 100 MG CAPSULE PO ×2 (08:26→20:11)
[2024-03-13] MEDS: ENOXAPARIN 40MG/0.4ML SYRINGE 40 MG SQ (08:26)
[2024-03-13 09:26] LABS: Lymphocytes % 3 % (10-50); Monocytes % 15 % (2-9); Neutrophils % 82 % (42-76); Platelet Estimate Normal; RBC Morphology Normal; Total Cells Counted 100
--- NOTE | 2024-03-13 11:49 | PC.NURSE ---
NG TUBE REMOVED AT THIS TIME, PATIENT TOLERATED WELL.
[2024-03-13 12:00] VITALS: BP 163/97; PULSE 100; PULSE 92; RESP 18; TEMP 36.6; O2SAT 99
[2024-03-13 16:00] VITALS: BP 159/97; PULSE 100; PULSE 103; RESP 20; TEMP 36.8; O2SAT 99
--- NOTE | 2024-03-13 18:22 | PC.NURSE ---
A&OX4. TOLERATING RA WELL. HAS RESTED IN BED MAJORITY OF DAY. HAS HAD 2 BM THUS FAR. BOTTOM RED, AREA KEPT CLEAN AND DRY WITH DRESSING IN PLACE. F/C IN PLACE DRAINING DARK YELLOW URINE. PATIENT DID GET UP AND SIT IN THE CHAIR FOR A BIT TODAY, WITH STANDBY ASSIST. TOLERATED VERY WELL. PT HAS TOLERATED CLEAR LIQUID DIET TODAY. STATES HE DOESN'T HAVE MUCH OF AN APPETITE, BUT IS NOT HAVING ANY NAUSEA, VOMITING, OR PAIN. HAS NOT HAD ANY NEEDS THIS SHIFT. VSS.
[2024-03-13 20:00] VITALS: BP 157/96; PULSE 105; PULSE 110; RESP 18; TEMP 36.7; O2SAT 97
[2024-03-13] MEDS: SENNOSIDES 8.6MG/DOCUSATE 50MG TABLET 1 TAB PO (20:11)
[2024-03-13] MEDS: SODIUM CHLORIDE 0.9% 10ML VIAL 10 ML IV (20:11)
[2024-03-13] MEDS: CEFTRIAXONE 1 GM 1 GM in 0.9 % SODIUM CHLORIDE 50 ML IV (20:11)
[2024-03-13] MEDS: PANTOPRAZOLE 40MG VIAL 40 MG IV (20:11)
--- NOTE | 2024-03-13 21:45 | PC.NURSE ---
Called Zbigniew BEST at this time about patient's consistently high blood pressure readings this shift in the 150/90s. Manual blood pressure was taken and the reading was 154/94. Zbigniew stated that no interventions are needed at this time, and that she is fine with the readings as long as they are below 180s. Patient is resting comfortably in bed with no complaints.
[2024-03-14] VITALS: BP 158/88; PULSE 80; PULSE 88; RESP 16; TEMP 37.2; O2SAT 97
[2024-03-14] MEDS: 0.9 % SODIUM CHLORIDE 1000ML 1,000 ML 50 ML IV (00:24)
[2024-03-14 04:00] VITALS: BP 161/89; PULSE 80; PULSE 85; RESP 16; TEMP 36.9; O2SAT 97; BMI 22.6
--- NOTE | 2024-03-14 05:14 | PC.NURSE ---
Patient alert and oriented x4. Patient has rested well for the majority of the night. Patient has been tolerating his clear liquid diet well and stated last evening that it feels good to have something in his stomach. Patient's diet is expected to advance to full liquids this morning. Patient's bowel sounds were active in all quadrants upon auscultating. Patient has clear but very soft lung sounds and is tachycardic on tele. Patient has not had any complaints of pain or feeling nauseous this shift. He has received his scheduled meds per OCT and has a current bag of normal saline infusing at 50 mL/hr since 00:24. I emptied 600 mL of urine myself from the patient's silverman bag this shift. Urine was yenifer with a slight smokey odor upon emptying. The foam flower dressing on his bottom was changed and barrier cream was applied after receiving a bed bath this shift; his coccyx remains reddened. Patient has not had any further complaints this shift. He is sleeping supine at this time. Call light is within reach.
[2024-03-14 07:19] LABS: Basophils % 0.1 % (0.1-2.0); Eosinophils # 0.1 K/mm3 (0.0-0.4); Eosinophils % 0.3 % (0.1-12.0); Hematocrit 31.4 % (42.0-52.0); Lymphocytes % 5.5 % (10-50); Mean Corpuscular HGB Conc 38.3 g/dL (31.8-35.4); Mean Corpuscular Hemoglobin 34.6 pg (27.0-31.2); Mean Corpuscular Volume 90.3 fl (80-94); Mean Platelet Volume 7.4 fl (7.4-10.4); Monocytes # 1.6 K/mm3 (0.1-1.0); Monocytes % 9.1 % (1.7-9.3); Neutrophils # 15.2 K/mm3 (1.8-7.8); Neutrophils % 84.9 % (37.0-80.0); Platelet Count 369 K/mm3 (142-424); Red Blood Count 3.48 M/mm3 (4.60-6.20); Red Cell Distribution Width 16.4 % (11.5-17.5); White Blood Count 17.9 K/mm3 (4.8-10.8)
[2024-03-14 07:25] LABS: MANUAL DIFFERENTIAL MANUAL DIFFERENTIAL (MANUAL DIFF)
[2024-03-14 07:28] LABS: Alanine Aminotransferase 21 U/L (12-78); Albumin Level 3.3 g/dl (3.5-5.0); Albumin/Globulin Ratio 1.4 (1.1-1.8); Alkaline Phosphatase 118 U/L (38-126); Anion Gap 9.5 mEq/L (5-15); Aspartate Amino Transferase 31 U/L (17-59); Bilirubin,Total 0.6 mg/dl (0.2-1.3); Blood Urea Nitrogen 16 mg/dl (9-20); Calcium 8.7 mg/dl (8.4-10.2); Carbon Dioxide 22 mmol/L (22.0-30.0); Chloride 107 mmol/L (98-107); Creatinine Clearance Estimated 53 mL/min (50-200); Estimated Glomerular Filt Rate 207 ml/min (>60); GFR (African American) 250 ML/MIN (>60); Globulin 2.3 g/dL (1.3-3.2); Glucose 88 mg/dl (74-100); Potassium 3.5 mmoL/L (3.5-5.1); Sodium 135 mmol/L (136-145); Total Protein,Serum 5.6 g/dl (6.3-8.2)
--- NOTE | 2024-03-14 07:55 | EXP.DC.SUM ---
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 Patient states he woke up around 7 AM today, 03/11. Has had progressively worsening abdominal pain and distention. last BM today before coming to hospital. admitted for further management and treatment. 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 Workup independently interpreted and significant for leukocytosis 20,000 with neutrophilia. Also reactive thrombocytosis 517. Patient's hemoglobin 13.6. Kidney function normal. Patient's lactate elevated 2.7. Troponin negative, lipase negative. UA with bacteria, leukocyte Estrace, nitrates, protein concerning for UTI. CT angio of the abdomen pelvis with severe dilation of the stomach and proximal small bowel concerning for SBO versus obstipation given large stool burden. agreed for admission after discussion with ED provider about findings and benefits of inpatient management. Patient initiated on aggressive bowel regimen. After multiple enemas, started having bowel movements. [place] much better. NG was removed and diet was advanced. Continue to have bowel movements with no abdominal pain. Stable to discharge home on improved bowel regimen. Problems addressed as follows: Abdominal pain with nausea and vomiting: Bowel obstruction, suspected for fecal impaction. Chronic history of constipation and cholelithiasis -Per review of imaging, patient had severe constipation. Occasion for surgical intervention. Initiated enemas and bowel regimen. Responded well with bowel movements. NG was removed and diet was advanced. Tolerated clears for 24 hours and then full liquids for approximately 24 hours prior to discharge home. Will continue bowel regimen at discharge. See med rec for full details. Urinary tract infection Urine culture positive for C. fruendii, sensitive to ceftriaxone and Levaquin. Continue ceftriaxone during admission 1 g daily. Will discontinue Flagyl. Transitioned to Levaquin at discharge to complete 7 days of antibiotics. Tan catheter during admission. Removed at discharge, resume and out cathing per home regimen. White cell count showing improvement by day of discharge at 17. Patient afebrile. Would benefit from repeat CBC and CMP in 1 week. -History of diffuse l B-cell lymphoma, with spinal lumbar radiculopathic and cauda equina syndrome Patient recently started on oxycodone for pathological fracture. Suspected opioid had worsening constipation Hypertension: continue lisinopril Exam Data for Last 24 hours Vital signs and Labs for Last 24 Hours: Temp Pulse Resp BP Pulse Ox O2 Del Method 98.4 F 85 16 161/89 H 97 Room Air 03/14/24 04:00 03/14/24 04:00 03/14/24 04:00 03/14/24 04:00 03/14/24 04:00 03/14/24 06:45 Laboratory Results - last 24 hr 03/13/24 06:26: Total Counted 100, Neutrophils % (Manual) 82 H, Lymphocytes % (Manual) 3 L, Monocytes % (Manual) 15 H, Platelet Estimate Normal, RBC Morphology Normal, Sodium 138, Potassium 3.6, Chloride 108 H, Carbon Dioxide 24, Anion Gap 9.6, BUN 21 H, Creatinine 0.50 L, Estimated Creat Clear 52, Estimated GFR 160, Est GFR ( Amer) 194, Glucose 100, Calcium 9.0, Magnesium 2.0 D, Total Bilirubin 0.7, AST 41, ALT 20, Alkaline Phosphatase 108, Total Protein 6.2 L, Albumin 3.7, Globulin 2.5, Albumin/Globulin Ratio 1.5 03/14/24 06:24: WBC 17.9 H, RBC 3.48 L, Hgb 12.0 L, Hct 31.4 L, MCV 90.3, MCH 34.6 H, MCHC 38.3 H, RDW 16.4, Plt Count 369, MPV 7.4, Neut % (Auto) 84.9 H, Lymph % (Auto) 5.5 L, [place] % (Auto) 9.1, Eos % (Auto) 0.3, Baso % (Auto) 0.1, Neut # (Auto) 15.2 H, Lymph # (Auto) 1.0, [place] # (Auto) 1.6 H, Eos # (Auto) 0.1, Baso # (Auto) 0.0, Sodium 135 L, Potassium 3.5, Chloride 107, Carbon Dioxide 22, Anion Gap 9.5, BUN 16, Creatinine 0.40 L, Estimated Creat Clear 53, Estimated GFR 207, Est GFR ( Amer) 250 D, Glucose 88, Calcium 8.7, Total Bilirubin 0.6, AST 31, ALT 21, Alkaline Phosphatase 118, Total Protein 5.6 L, Albumin 3.3 L D, Globulin 2.3, Albumin/Globulin Ratio 1.4 I & O for Last 24 hours: Intake & Output 03/11/24 03/12/24 03/13/24 03/14/24 23:59 23:59 23:59 23:59 Intake Total 1097 / 1440 2558 / 2976 418 / 418 Output Total 1300 / 1725 675 / 1275 850 / 850 Balance -203 / -285 1883 / 1701 -432 / -432 Weight 63.503 kg 61.507 kg 62.171 kg 63.758 kg Microbiology Reports for the Last 24 Hours: Microbiology 03/11/24 22:10 Blood Blood Culture - Preliminary NO GROWTH AFTER 48 HOURS 03/11/24 22:00 Blood Blood Culture - Preliminary NO GROWTH AFTER 48 HOURS 03/11/24 21:15 Urine,Clean Catch Urine Culture - Final Citrobacter freundii Constitutional Constitutional: no acute distress, thin and chronically ill appearing *Routine HEENT Exam Head: Present normocephalic Eye: Present EOMI and PERRL ENT: Present mucous membranes moist *Routine Neck Exam Neck: Present supple; Absent lymphadenopathy *Routine Respiratory Exam Respiratory: Present CTA bilaterally; Absent rhonchi, wheezes or crackles *Routine Cardiovascular Exam Cardiovascular: Present RRR *Routine Abdominal Exam Abdominal: Present soft and normoactive bowel sounds; Absent tenderness *Routine Rectal Exam Patient deferred: visual exam *Routine Exam Patient deferred: penile exam *Routine Extremities Exam Extremities: Absent cyanosis, clubbing or edema *Routine Skin Exam Skin: Present warm; Absent rash *Routine Neurological Exam Neurological: Present alert, oriented X3 and moving all extremities; Absent altered mental status Results Data Completed and Pending Labs on day of discharge: Labs from last 24 hours 03/14/24 03/13/24 06:24 06:26 WBC 17.9 H RBC 3.48 L Hgb 12.0 L Hct 31.4 L MCV 90.3 MCH 34.6 H MCHC 38.3 H RDW 16.4 Plt Count 369 MPV 7.4 Neut % (Auto) 84.9 H Lymph % (Auto) 5.5 L [place] % (Auto) 9.1 Eos % (Auto) 0.3 Baso % (Auto) 0.1 Neut # (Auto) 15.2 H Lymph # (Auto) 1.0 [place] # (Auto) 1.6 H Eos # (Auto) 0.1 Baso # (Auto) 0.0 Total Counted 100 Neutrophils % (Manual) 82 H Lymphocytes % (Manual) 3 L Monocytes % (Manual) 15 H Platelet Estimate Normal RBC Morphology Normal Sodium 135 L 138 Potassium 3.5 3.6 Chloride 107 108 H Carbon Dioxide 22 24 Anion Gap 9.5 9.6 BUN 16 21 H Creatinine 0.40 L 0.50 L Estimated Creat Clear 53 52 Estimated GFR 207 160 Est GFR ( Amer) 250 D 194 Glucose 88 100 Calcium 8.7 9.0 Magnesium 2.0 D Total Bilirubin 0.6 0.7 AST 31 41 ALT 21 20 Alkaline Phosphatase 118 108 Total Protein 5.6 L 6.2 L Albumin 3.3 L D 3.7 Globulin 2.3 2.5 Albumin/Globulin Ratio 1.4 1.5 Preliminary micro results at discharge 03/11/24 22:10 Blood Culture - Preliminary Blood NO GROWTH AFTER 48 HOURS 03/11/24 22:00 Blood Culture - Preliminary Blood NO GROWTH AFTER 48 HOURS DS: Diagnosis Discharge Diagnosis (1) Bowel obstruction: Status: Acute Code(s): K56.609 - Unspecified intestinal obstruction, unspecified as to partial versus complete obstruction Qualifiers: Intestinal obstruction type: fecal impaction Qualified Code(s): K56.41 - Fecal impaction (2) Obstipation: Status: Acute Code(s): K59.00 - Constipation, unspecified (3) Abdominal pain: Status: Acute Code(s): R10.9 - Unspecified abdominal pain Qualifiers: Abdominal location: generalized Qualified Code(s): R10.84 - Generalized abdominal pain (4) UTI (urinary tract infection): Status: Acute Code(s): N39.0 - Urinary tract infection, site not specified Qualifiers: Hematuria presence: without hematuria Urinary tract infection type: site unspecified Qualified Code(s): N39.0 - Urinary tract infection, site not specified (5) Cholelithiasis: Status: Acute Code(s): K80.20 - Calculus of gallbladder without cholecystitis without obstruction Qualifiers: Biliary obstruction: without biliary obstruction Cholecystitis presence: without cholecystitis Cholelithiasis location: gallbladder and bile duct Qualified Code(s): K80.70 - Calculus of gallbladder and bile duct without cholecystitis without obstruction (6) DLBCL (diffuse large B cell lymphoma): Status: Acute Code(s): C83.30 - Diffuse large B-cell lymphoma, unspecified site Qualifiers: Lymphoma site: intra-abdominal nodes Qualified Code(s): C83.33 - Diffuse large B-cell lymphoma, intra-abdominal lymph nodes (7) Hypertension: Status: Acute Code(s): I10 - Essential (primary) hypertension Qualifiers: Hypertension type: unspecified Qualified Code(s): I10 - Essential (primary) hypertension (8) Cauda equina syndrome: Status: Acute Code(s): G83.4 - Cauda equina syndrome Meds Home Medications and Allergies Home Medications Medication Instructions Recorded Confirmed Type lisinopril 20 mg tablet 20 mg PO DAILY 03/12/24 03/12/24 History levofloxacin 750 mg tablet 750 mg PO DAILY 3 days #3 tabs 03/14/24 Rx sennosides 8.6 mg-docusate sodium 1 tab PO HS 30 days #30 tabs 03/14/24 Rx 50 mg tablet (Stimulant Laxative Plus) New Prescriptions to Start Prescriptions: Rip Jarrell sennoanikas-docusate sodium [Stimulant Laxative Plus] Rip Perez Allergies Allergy/AdvReac Type Severity Reaction Status Date / Time No Known Allergies Allergy Verified 02/26/24 09:39 Discharge Plan Disposition Patient Disposition: Home Health Service Condition: Fair Discharge Order Discharge Orders: Discharge Order (Routine); Ordered 03/14/24 Ordered By: Rip Perez Follow up Plan Follow up with: Prateek Best DO [Primary Care Provider] - 03/21/24 1:00 pm Prescriptions/Medication Reconciliation: New sennosides-docusate sodium [Stimulant Laxative Plus] 8.6-50 mg Tablet 1 tab PO HS 30 Days Qty: 30 0RF levofloxacin 750 mg tablet 750 mg PO DAILY 3 Days Qty: 3 0RF Continued lisinopril 20 mg tablet 20 mg PO DAILY Patient Comments: TAKE 1 TABLET BY MOUTH DAILY Problem Reconciliation Problems Reviewed?: Yes Patient Discharge Instructions ACTIVITY: Continue current activity DIET: continue same diet Patient Instructions: DI for Small Bowel Obstruction, DI for Urinary Tract Infection (UTI), Catheter-Associated Urinary Tract Infection Providers Primary Care Provider: Prateek Best Provider: Rip Perez Attending Provider: Rip Perez
[2024-03-14 07:57] VITALS: BP 123/68; PULSE 86; RESP 17; TEMP 36.6; O2SAT 98
[2024-03-14 08:00] VITALS: PULSE 85
[2024-03-14] MEDS: DOCUSATE SODIUM 100 MG CAPSULE PO (08:40)
[2024-03-14] MEDS: POLYETHYLENE GLYCOL 3350 17 GM PACKET PO (08:40)
[2024-03-14] MEDS: ENOXAPARIN 40MG/0.4ML SYRINGE 40 MG SQ (08:40)
[2024-03-14 08:57] LABS: Magnesium 1.7 mg/dl (1.6-2.3)
[2024-03-14 09:43] LABS: Lymphocytes % 7 % (10-50); Monocytes % 11 % (2-9); Neutrophils % 82 % (42-76); Total Cells Counted 100
[2024-03-14 09:44] LABS: Platelet Estimate Normal; RBC Morphology Normal
[2024-03-14] MEDS: levoFLOXacin 750 MG TABLET PO (11:32)
[2024-03-14 11:37] VITALS: PULSE 90
--- NOTE | 2024-03-14 11:44 | SW/DCPLANNER ---
Addendum entered by Christina Roberts 03/14/24 13:34: Blaire ye/ [facility] stated that home health services will resume for this patient. Original Note: Patient is currently established w/ [facility]. Updated patient information/order to resume home health services will be faxed today. The plan for this patient is to discharge back home today.
--- NOTE | 2024-03-18 10:44 | CARE MANAGER ---
Unable to reach patient to discuss recent discharge. Call attempted X 2 and no VM option available.
== END 2024-03-14 12:56 | disposition home health service (06) | DRG 389 ==
LOC: ER 23:01 → 2ND 03-12 01:55
PROVIDERS: Nurse Practitioner Family; Admitting Provider Internal Medicine Adolescent Medicine; Emergency Provider Emergency Medicine; PCP Internal Medicine; Visit Provider Internal Medicine Adolescent Medicine
DX: K56.41 Fecal impaction (principal); C83.30 Diffuse large B-cell lymphoma, unspecified site; N39.0 Urinary tract infection, site not specified; G83.4 Cauda equina syndrome; I10 Essential (primary) hypertension; E78.5 Hyperlipidemia, unspecified; Z85.828 Personal history of other malignant neoplasm of skin; Z85.89 Personal history of malignant neoplasm of other organs and systems; B96.89 Other specified bacterial agents as the cause of diseases classified elsewhere; Z85.72 Personal history of non-Hodgkin lymphomas; Z87.891 Personal history of nicotine dependence; K80.70 Calculus of gallbladder and bile duct without cholecystitis without obstruction
CPT/HCPCS: 36415; 74018; 74174; 80053; 80061; 81001; 83036; 83605; 83690; 83735; 84484; 85007; 85025; 85027; 87040; 87086; 87088; 87186; 93005; 99291; J0295; J0696; J1650; J1885; J2405; J3475; J7120; Q9967

== ENCOUNTER 2024-04-02 10:50 | Outpatient (CLI) | payer MEDICARE, SELFPAY ==
[2024-04-02 18:38] LABS: Basophils % 0.2 % (0.1-2.0); Eosinophils # 0.2 K/mm3 (0.0-0.4); Eosinophils % 1.6 % (0.1-12.0); Hematocrit 42.7 % (42.0-52.0); Hemoglobin 13.4 g/dL (14.1-18.0); Lymphocytes # 0.9 K/mm3 (0.7-4.5); Lymphocytes % 10.1 % (10-50); Mean Corpuscular HGB Conc 31.5 g/dL (31.8-35.4); Mean Corpuscular Hemoglobin 29.3 pg (27.0-31.2); Mean Corpuscular Volume 93.1 fl (80-94); Mean Platelet Volume 8.3 fl (7.4-10.4); Monocytes # 0.8 K/mm3 (0.1-1.0); Monocytes % 8.8 % (1.7-9.3); Neutrophils # 7.4 K/mm3 (1.8-7.8); Neutrophils % 79.3 % (37.0-80.0); Platelet Count 506 K/mm3 (142-424); Red Blood Count 4.58 M/mm3 (4.60-6.20); Red Cell Distribution Width 15.9 % (11.5-17.5); White Blood Count 9.3 K/mm3 (4.8-10.8)
== END 2024-04-02 23:59 | disposition home or self-care (01) ==
LOC: LAB.DROPOF 04-03 10:52
PROVIDERS: PCP Internal Medicine; Visit Provider Internal Medicine
DX: R63.4 Abnormal weight loss (principal); Z68.23 Body mass index [BMI] 23.0-23.9, adult
CPT/HCPCS: 85025

== ENCOUNTER 2024-04-30 18:53 | Outpatient (CLI) | payer SELFPAY ==
[2024-04-30 19:33] LABS: Anion Gap 10.3 mEq/L (5-15); Blood Urea Nitrogen 18 mg/dl (9-20); Calcium 9.5 mg/dl (8.4-10.2); Carbon Dioxide 27 mmol/L (22.0-30.0); Chloride 103 mmol/L (98-107); Estimated Glomerular Filt Rate 130 ml/min (>60); GFR (African American) 157 ML/MIN (>60); Glucose 87 mg/dl (74-100); Potassium 4.3 mmoL/L (3.5-5.1); Sodium 136 mmol/L (136-145)
[2024-05-06 13:29] LABS: Antinuclear Antibodies, IFA Negative (.)
== END 2024-04-30 23:59 | disposition home or self-care (01) ==
LOC: LAB.DROPOF 18:53
PROVIDERS: PCP Nurse Practitioner Family; Visit Provider Nurse Practitioner Family
DX: Z87.898 Personal history of other specified conditions (principal)
CPT/HCPCS: 80048; 86038